=== PATIENT | female | born 1975 | race Caucasian/White ===

== ENCOUNTER 2016-12-11 12:59 | Emergency (ER) | payer SELFPAY ==
[~2016-12-11] VITALS: Ht 162.6 cm; Wt 73.5 kg
[~2016-12-11 12:59] MED LIST: DOCU-144 PO; HYDR-3498 PO; OMEP20CA16 PO; SODI126M NASAL
[2016-12-11 13:01] VITALS: Ht 162.6 cm; Wt 73.5 kg
[2016-12-11] MEDS ORDERED: BENZ11.92 MM (14:25)
--- NOTE | 2016-12-11 14:55 | ERD ---
ER Documentation Chief Complaint Date/Time DATE: 12/11/16 TIME: 14:52 Chief Complaint mouth sores x this AM HPI Patient is a 40-year-old female with no past medical history who presents to the ED with sores on her tongue 1 month. She states that she has a sour taste in her mouth. She denies difficulty breathing or swallowing. Denies vomiting or diarrhea. Denies fever or chills. Denies headache or dizziness. Denies bleeding. Denies abdominal pain. Denies chest pain or cough or shortness of breath. States that she does not have a history of STDs and has been recently tested. No other complaints. ROS All systems reviewed and are negative except as per history of present illness. Medications Home Meds Active Scripts Benzocaine (Orabase) 11.9 Gm Paste..g., 1 APPLIC MM DAILY for 14 Days, EA Prov:DENNY MOMIN PA-C 12/11/16 Sodium Chloride (Saline Nasal Mist) 126 Ml Mist, 2 SPRAY NASAL Q2H Y for NASAL CONGESTION, #1 BOTTLE Prov:BRENT TURK NP 07/05/16 Omeprazole* (Omeprazole*) 20 Mg Capsule.dr, 20 MG PO QAM for 14 Days Prov:BRENT TURK NP 07/05/16 Hydrocodone Bit-Acetaminophen* ([place]*) 5-325 Mg Tab, 1 TAB PO Q4H Y for PAIN LEVEL 6-10 for 30 Days, TAB Prov:DANIELLE ROMO MD 05/27/15 Docusate Sodium* (Colace*) 100 Mg Capsule, 100 MG PO BID for 30 Days, CAP Prov:DANIELLE ROMO MD 05/27/15 Allergies Allergies: Coded Allergies: No Known Allergy (Unverified , 05/26/15) PMhx/Soc History of Surgery: Yes (,Ab Hernia Repair) Anesthesia Reaction: No Hx Neurological Disorder: No Hx Respiratory Disorders: No Hx Cardiac Disorders: No Hx Psychiatric Problems: No Hx Miscellaneous Medical Probl: No Hx Alcohol Use: Yes (Social) Hx Substance Use: No Hx Tobacco Use: Yes (Social 1 cigarette a month) FmHx Family History: No coronary disease, No diabetes, No other Physical Exam Vitals Vital Signs Date Time Temp Pulse Resp B/P Pulse Ox O2 Delivery O2 Flow Rate FiO2 12/11/16 13:01 98.2 86 16 145/73 98 Physical Exam GENERAL: Well-developed, well-nourished female. Appears in no acute distress. HEAD: Normocephalic, atraumatic. EYES: Pupils are equally reactive bilaterally. EOMs grossly intact. No conjunctival erythema. ENT: Moist mucous membranes. No uvula deviation. No kissing tonsils. No exudates. Small skin colored lesions posterior part of the tongue. Nonvesicular. Noninfectious. NECK: Supple. No lymphadenopathy or thyromegaly. No meningismus. negative kernig. negative brudinski. LUNG: Clear to auscultation bilaterally. No rhonchi, wheezing, rales or coarse breath sounds. HEART: Regular rate and rhythm. No murmurs, rubs or gallops. Extremities: Equal pulses bilaterally. No peripheral clubbing, cyanosis or edema. No unilateral leg swelling. NEUROLOGIC: Alert and oriented. Moving all four extremities. 5/5 strength in all extremities. Normal speech. Steady gait. SKIN: Normal color. Warm and dry. No rashes or lesions. Capillary refill < 2 seconds Procedures/MDM ER COURSE: I kept the patient and/or family informed of laboratory and diagnostic imaging results throughout the emergency room course. MEDICAL DECISION MAKING: This is a 40-year-old female who presents with sores on her tongue 1 month. Vital signs were reviewed. Patient is afebrile. Patient is not hypoxic. Patient is not toxic or ill-appearing. Patient's sores on the posterior aspect of her tongue are of unknown etiology. I have low suspicion for infection. Patient does not have dysphagia. Low suspicion for respiratory distress. Low suspicion for sepsis. Low suspicion for peritonsillar abscess. Low suspicion for peritonsillar abscess, strep pharyngitis, mononucleosis, dental abscess DISCHARGE: At this time, patient is stable for discharge and outpatient management with no new complaints during the ER course. Patient was sent home with Orabase and Magic mouthwash and to follow-up with a primary care provider to get a referral to see an ENT specialist. Patient was given a list of clinics in the area.. Patient will be discharged home with instructions to recheck for new or worsening symptoms such as fever, nausea, weakness, LOC and to follow up with primary care in the next 1-2 days. Patient was advised to return to the ER for any new or worsening symptoms. Plan was discussed and patient and/or family understands and agrees. Home instructions were given. Departure Diagnosis: Primary Impression: Tongue sore Condition: Stable Patient Instructions: When Your Child Has Mouth Sores Referrals: COMMUNITY CLINICS YOU HAVE RECEIVED A MEDICAL SCREENING EXAM AND THE RESULTS INDICATE THAT YOU DO NOT HAVE A CONDITION THAT REQUIRES URGENT TREATMENT IN THE EMERGENCY DEPARTMENT. FURTHER EVALUATION AND TREATMENT OF YOUR CONDITION CAN WAIT UNTIL YOU ARE SEEN IN YOUR DOCTORS OFFICE WITHIN THE NEXT 1-2 DAYS. IT IS YOUR RESPONSIBILITY TO MAKE AN APPOINTMENT FOR FOLOW-UP CARE. IF YOU HAVE A PRIMARY DOCTOR --you should call your primary doctor and schedule an appointment IF YOU DO NOT HAVE A PRIMARY DOCTOR YOU CAN CALL OUR PHYSICIAN REFERRAL HOTLINE AT IF YOU CAN NOT AFFORD TO SEE A PHYSICIAN YOU CAN CHOSE FROM THE FOLLOWING [facility] [address] [facility]. [facility] [address] [facility]. [facility] [address] [facility] [address] [facility]. [facility] [address] [facility]. [facility] [address] Additional Instructions: Call your primary care doctor TOMORROW for an appointment during the next 1-2 days.See the doctor sooner or return here if your condition worsens before your appointment time. DENNY MOMIN PA-C Dec 11, 2016 14:55
== END 2016-12-11 14:30 | disposition home or self-care (01) ==
LOC: E/R 12:59
DX: K13.79 Other lesions of oral mucosa (principal); F17.210 Nicotine dependence, cigarettes, uncomplicated
CPT/HCPCS: 99283

== ENCOUNTER 2017-02-09 12:28 | Emergency (ER) | payer MEDICAID ==
[~2017-02-09] VITALS: Ht 160 cm; Wt 73.0 kg
[~2017-02-09 12:28] MED LIST changes: +BENZ11.92 MM
[2017-02-09 12:51] VITALS: Ht 160 cm; Wt 73.0 kg
[2017-02-09] MEDS ORDERED: HYDROCODONE/APAP (5/325) TAB PO ONE (14:00)
[2017-02-09] MEDS ORDERED: DIPHTH/TET/ACEL PERTUSS (ADULT) 0.5 ML VIAL IM* ONE (14:00)
[2017-02-09] MEDS ORDERED: HYDR-906 PO (14:04)
[2017-02-09] MEDS ORDERED: CEPH-443 PO (14:04)
[2017-02-09] MEDS ORDERED: ACET500C5 PO (14:04)
--- NOTE | 2017-02-09 14:13 | ERD ---
ER Documentation Chief Complaint Date/Time DATE: 02/09/17 TIME: 14:08 Chief Complaint S/P FALL LST NIGHT LAC TO LEFT EYEBROW HPI Is a 41-year-old female presents emergency department today for a laceration of her left eye and some headache. Patient states that she was with her friends last night when she slipped and fell in the bathroom of a bar and hit her eye on the wall in front of her. Denies any loss of consciousness, nausea or vomiting. States she has not taken any medication for the pain. States that she had to go to work today and have several meetings and that is why she just come to the emergency room now. ROS All systems reviewed and are negative except as per history of present illness. Medications Home Meds Active Scripts Acetaminophen* (Tylophen*) 500 Mg Capsule, 1 CAP PO Q6H Y for PAIN AND OR ELEVATED TEMP, #30 CAP Prov:KISHAN MORRIS PA-C 02/09/17 Hydrocodone/Acetaminophen (Trimble 5-325 Tablet) 1 Each Tablet, 1 TAB PO Q6H Y for PAIN, #7 TAB Prov:KISHAN MORRIS PA-C 02/09/17 Cephalexin* (Keflex*) 500 Mg Capsule, 500 MG PO QID for 7 Days, CAP Prov:KISHAN MORRIS PA-C 02/09/17 Benzocaine (Orabase) 11.9 Gm Paste..g., 1 APPLIC MM DAILY for 14 Days, EA Prov:DENNY MOMINC 12/11/16 Sodium Chloride (Saline Nasal Mist) 126 Ml Mist, 2 SPRAY NASAL Q2H Y for NASAL CONGESTION, #1 BOTTLE Prov:BRENT TURK NP 07/05/16 Omeprazole* (Omeprazole*) 20 Mg Capsule.dr, 20 MG PO QAM for 14 Days Prov:BRENT TURK NP 07/05/16 Hydrocodone Bit-Acetaminophen* (Trimble*) 5-325 Mg Tab, 1 TAB PO Q4H Y for PAIN LEVEL 6-10 for 30 Days, TAB Prov:DANIELLE ROMO MD 05/27/15 Docusate Sodium* (Colace*) 100 Mg Capsule, 100 MG PO BID for 30 Days, CAP Prov:DANIELLE ROMO MD 05/27/15 Allergies Allergies: Coded Allergies: No Known Allergy (Unverified , 02/09/17) PMhx/Soc History of Surgery: Yes (,Ab Hernia Repair) Anesthesia Reaction: No Hx Neurological Disorder: No Hx Respiratory Disorders: No Hx Cardiac Disorders: No Hx Psychiatric Problems: No Hx Miscellaneous Medical Probl: No Hx Alcohol Use: Yes (Social) Hx Substance Use: No Hx Tobacco Use: Yes (Social 1 cigarette a month) Smoking Status: Current some day smoker Physical Exam Vitals Vital Signs Date Time Temp Pulse Resp B/P Pulse Ox O2 Delivery O2 Flow Rate FiO2 02/09/17 12:51 98.9 84 19 132/61 100 Physical Exam Const: Talkative, no acute distress Head: Left eye with mild swelling superior orbit with mild tenderness palpation. Nontender inferior orbit. Eyes: Normal Conjunctiva. PERRLA. EOM intact. No pain with eye movement. ENT: Normal External Ears, Nose and Mouth. No hemotympanum. No epistaxis. Neck: Full range of motion..~ No meningismus. Resp: Clear to auscultation bilaterally Cardio: Regular rate and rhythm, no murmurs Abd: Soft, non tender, non distended. Normal bowel sounds Skin: 1 cm laceration left eyelid with hemostasis. Back: No midline or flank tenderness Ext: No cyanosis, or edema Neur: Awake and alert. He understood through 12 intact. No gait ataxia peer Psych: Normal Mood and Affect Results 24 hrs Current Medications Medications (Trade) Dose Ordered Sig/Cipriano Route PRN Reason Start Time Stop Time Status Last Admin Dose Admin Acetaminophen/ Hydrocodone Bitart (Trimble (5/325)) 1 tab ONCE ONCE PO 02/09/17 14:00 02/09/17 14:01 DC 02/09/17 13:49 Diphtheria/ Tetanus/Acell Pertussis (Adacel) 0.5 ml ONCE ONCE IM* 02/09/17 14:00 02/09/17 14:01 DC 02/09/17 13:50 Procedures/MDM This 41-year-old female presents emergency department today for a laceration above her left eye and a headache. Patient slipped and fell on the girls bathroom at a bar last night. She denies any loss of consciousness or nausea vomiting. She had not taken any medication for the pain. Patient did have some mild amount of swelling above her left orbit with mild tenderness. She is afebrile and otherwise well-appearing. She is no focal neurologic deficits and no gait ataxia given that there is no loss of consciousness or nausea vomiting do not feel the patient requires a head CT scan at this time. Low suspicion for orbital fractures patient only has mild tenderness palpation. Her EOMs intact. There is no pain with eye movement or tracking I have low suspicion for nerve entrapment. I did give the patient return precautions for any change in behavior, increasing pain, nausea or vomiting. Patient understood. Patient's laceration occurred greater than 12 hours ago however it appears superficial at this time there is good hemostasis. Wound appears to be superficial and it may heal by secondary intention at this time. The wound was cleaned here in the emergency department and I did apply Steri-Strips. Patient given a prescription for Keflex. Her tetanus was updated here in the emergency department she is also given Trimble here in the emergency department. She will be given a very short course for home as well as Tylenol. Patient is sitting up in the exam room on her phone is in no acute distress. She was instructed to follow-up in 48 hours for a wound check. At this time the patient is stable for discharge and outpatient management. Patient should follow up with their PCP in the next 1-2 days. They may return to the emergency department sooner for any persistent or worsening of symptoms. Patient understood and agreed with the plan. Departure Diagnosis: Primary Impression: Laceration Additional Impression: Headache Headache type: unspecified Headache chronicity pattern: episodic headache Intractability: not intractable Qualified Code: R51 - Nonintractable episodic headache, unspecified headache type Condition: Fair Patient Instructions: Self-Care for Headaches, Laceration, Face (Suture Or Tape ) Referrals: [facility] YOU HAVE RECEIVED A MEDICAL SCREENING EXAM AND THE RESULTS INDICATE THAT YOU DO NOT HAVE A CONDITION THAT REQUIRES URGENT TREATMENT IN THE EMERGENCY DEPARTMENT. FURTHER EVALUATION AND TREATMENT OF YOUR CONDITION CAN WAIT UNTIL YOU ARE SEEN IN YOUR DOCTORS OFFICE WITHIN THE NEXT 1-2 DAYS. IT IS YOUR RESPONSIBILITY TO MAKE AN APPOINTMENT FOR FOLOW-UP CARE. IF YOU HAVE A PRIMARY DOCTOR --you should call your primary doctor and schedule an appointment IF YOU DO NOT HAVE A PRIMARY DOCTOR YOU CAN CALL OUR PHYSICIAN REFERRAL HOTLINE AT IF YOU CAN NOT AFFORD TO SEE A PHYSICIAN YOU CAN CHOSE FROM THE FOLLOWING [facility] [address] [facility] [address] [facility] [address] [facility] [address] [facility] [facility] [address] [facility]. [facility] [address] Additional Instructions: Call your primary care doctor TOMORROW for an appointment during the next 1-2 days.See the doctor sooner or return here if your condition worsens before your appointment time. Wound check in 48 hours Take Trimble for severe pain otherwise take Tylenol Keep wound clean and dry Take antibiotics as prescribed KISHAN MORRIS PA-C Feb 09, 2017 14:13
== END 2017-02-09 14:23 | disposition home or self-care (01) ==
LOC: FTE 12:28
DX: S01.112A Laceration without foreign body of left eyelid and periocular area, initial encounter (principal); S09.90XA Unspecified injury of head, initial encounter; F17.210 Nicotine dependence, cigarettes, uncomplicated; W01.198A Fall on same level from slipping, tripping and stumbling with subsequent striking against other object, initial encounter; Y92.002 Bathroom of unspecified non-institutional (private) residence as the place of occurrence of the external cause
CPT/HCPCS: 90471; 90715; Z7502; Z7610

== ENCOUNTER 2017-02-12 10:13 | Emergency (ER) | payer MEDICAID ==
[~2017-02-12] VITALS: Ht 167.6 cm; Wt 74.5 kg
[~2017-02-12 10:13] MED LIST changes: +ACET500C5 PO; +CEPH-443 PO; +HYDR-906 PO
[2017-02-12 10:15] VITALS: Ht 167.6 cm; Wt 74.5 kg
[2017-02-12] MEDS ORDERED: NEOM1PAC TP (10:37)
--- NOTE | 2017-02-12 10:53 | ERD ---
ER Documentation Chief Complaint Date/Time DATE: 02/12/17 TIME: 10:52 Chief Complaint Suture removal HPI This 41-year-old female presents the emergency department today for wound check of a laceration that she sustained a few days ago. I did see this patient on ROS All systems reviewed and are negative except as per history of present illness. Medications Home Meds Active Scripts Neomycin Scott/Bacitrac Zn/Poly (Triple Antibiotic Ointment) 1 Each Oint.pack, 1 EACH TP BID, #7 Prov:KISHAN MORRIS PA-C 02/12/17 Acetaminophen* (Tylophen*) 500 Mg Capsule, 1 CAP PO Q6H Y for PAIN AND OR ELEVATED TEMP, #30 CAP Prov:KISHAN MORRIS PA-C 02/09/17 Hydrocodone/Acetaminophen ([place]cad[place] 5-325 Tablet) 1 Each Tablet, 1 TAB PO Q6H Y for PAIN, #7 TAB Prov:KISHAN MORRIS PA-C 02/09/17 Cephalexin* (Keflex*) 500 Mg Capsule, 500 MG PO QID for 7 Days, CAP Prov:KISHAN MORRIS PA-C 02/09/17 Benzocaine (Orabase) 11.9 Gm Paste..g., 1 APPLIC MM DAILY for 14 Days, EA Prov:DENNY MOMIN PA-C 12/11/16 Sodium Chloride (Saline Nasal Mist) 126 Ml Mist, 2 SPRAY NASAL Q2H Y for NASAL CONGESTION, #1 BOTTLE Prov:BRENT TURK NP 07/05/16 Omeprazole* (Omeprazole*) 20 Mg Capsule.dr, 20 MG PO QAM for 14 Days Prov:BRENT TURK NP 07/05/16 Hydrocodone Bit-Acetaminophen* ([place]cad[place]*) 5-325 Mg Tab, 1 TAB PO Q4H Y for PAIN LEVEL 6-10 for 30 Days, TAB Prov:DANIELLE ROMO MD 05/27/15 Docusate Sodium* (Colace*) 100 Mg Capsule, 100 MG PO BID for 30 Days, CAP Prov:DANIELLE ROMO MD 05/27/15 Allergies Allergies: Coded Allergies: No Known Allergy (Unverified , 02/09/17) PMhx/Soc History of Surgery: Yes (,Ab Hernia Repair) Anesthesia Reaction: No Hx Neurological Disorder: No Hx Respiratory Disorders: No Hx Cardiac Disorders: No Hx Psychiatric Problems: No Hx Miscellaneous Medical Probl: No Hx Alcohol Use: Yes (Socially) Hx Substance Use: No Hx Tobacco Use: Yes (occasionally) Smoking Status: Never smoker Physical Exam Vitals Vital Signs Date Time Temp Pulse Resp B/P Pulse Ox O2 Delivery O2 Flow Rate FiO2 02/12/17 10:15 98.0 72 20 111/70 100 Physical Exam Const: No acute distress Head: Atraumatic Eyes: Normal Conjunctiva. PERRLA. EOM intact. Mild bruising over the outer part of the eye with evidence of healing laceration. ENT: Normal External Ears, Nose and Mouth. Neck: Full range of motion..~ No meningismus. Resp: Clear to auscultation bilaterally Cardio: Regular rate and rhythm, no murmurs Skin: No petechiae or rashes Back: No midline or flank tenderness Ext: No cyanosis, or edema Neur: Awake and alert Psych: Normal Mood and Affect Procedures/MDM This 41-year-old female who presents to the emergency department today for wound check of a laceration she sustained 4 days ago. Patient was here in the emergency department 3 days ago and I did see and evaluate this patient and the decision was made to use Steri-Strips to close the wound at that time as it appeared to be superficial and furthermore patient had had the laceration the night before had been greater than 2 1 hours prior to patient's presentation here in the emergency department. Patient reported that her headache has improved and she even went hiking yesterday. Denies any fevers or chills. States she is taking her antibiotics as prescribed. Wound appears to be healing well and is well approximated. I did reapply Steri-Strips and notify the patient when he fell off she did not need to reapply them. She was also given triple antibiotic ointment to apply after the Steri-Strips have come off. Low suspicion for sepsis, cellulitis or deep space infection. At this time the patient is stable for discharge and outpatient management. Patient should follow up with their PCP in the next 1-2 days. They may return to the emergency department sooner for any persistent or worsening of symptoms. Patient understood and agreed with the plan. Departure Diagnosis: Primary Impression: Visit for wound check Condition: Fair Patient Instructions: Wound Check, Lac F/U (No Infection) Referrals: [facility] YOU HAVE RECEIVED A MEDICAL SCREENING EXAM AND THE RESULTS INDICATE THAT YOU DO NOT HAVE A CONDITION THAT REQUIRES URGENT TREATMENT IN THE EMERGENCY DEPARTMENT. FURTHER EVALUATION AND TREATMENT OF YOUR CONDITION CAN WAIT UNTIL YOU ARE SEEN IN YOUR DOCTORS OFFICE WITHIN THE NEXT 1-2 DAYS. IT IS YOUR RESPONSIBILITY TO MAKE AN APPOINTMENT FOR FOLOW-UP CARE. IF YOU HAVE A PRIMARY DOCTOR --you should call your primary doctor and schedule an appointment IF YOU DO NOT HAVE A PRIMARY DOCTOR YOU CAN CALL OUR PHYSICIAN REFERRAL HOTLINE AT IF YOU CAN NOT AFFORD TO SEE A PHYSICIAN YOU CAN CHOSE FROM THE FOLLOWING [facility] [address] [facility]. [facility] [address] [facility]. [facility] [address] [facility] [address] [facility] [address] [facility]. [facility]. [address] Additional Instructions: Call your primary care doctor TOMORROW for an appointment during the next 1-2 days.See the doctor sooner or return here if your condition worsens before your appointment time. Keep wound clean and dry for another couple of days Keep Steri-Strips until they fall off May use triple antibiotic ointment KISHAN MORRIS PA-C Feb 12, 2017 10:53
== END 2017-02-12 11:13 | disposition home or self-care (01) ==
LOC: FTE 10:13
DX: Z48.01 Encounter for change or removal of surgical wound dressing (principal)
CPT/HCPCS: 99283

== ENCOUNTER 2019-01-19 13:29 | Inpatient (IN) | payer MEDICAID ==
[~2019-01-19] VITALS: Ht 167.6 cm; Wt 74.5 kg
[~2019-01-19 13:29] MED LIST changes: +HYDR-4011 PO; -HYDR-906 PO; +NEOM1PAC TP
--- NOTE | 2019-01-19 13:40 | ERD ---
ER Documentation Chief Complaint Chief Complaint Abdominal Pain HPI 43-year-old female with no significant prior medical history presents the ED complaining of a 2-day history of worsening, now severe, sharp and achy, right upper quadrant pain which radiates to the back. Symptoms recorded by nausea but no vomiting, diarrhea or constipation. Patient was in [place] when the symptoms began was seen yesterday at a hospital there were ultrasound revealed cholelithiasis. Symptoms improved with intravenous analgesics but admission was advised however patient decided to return home and be seen in the hospital close to her home in [place]. Patient [place] straight from the airport. No dysuria, polyuria, hematuria or flank pain. Denies chest pain, palpitations or shortness of breath. No fevers or chills. ROS All systems reviewed and are negative except as per history of present illness. Medications Home Meds Active Scripts Tramadol HCl (Tramadol HCl) 50 Mg Tablet, 50 MG PO Q6H PRN for PAIN, #20 TAB Prov:ARAVIND SCHAEFER 01/22/19 Discontinued Scripts Neomycin Scott/Bacitrac Zn/Poly (Triple Antibiotic Ointment) 1 Each Oint.pack, 1 EACH TP BID, #7 Prov:KISHAN MORRIS PA-C 02/12/17 Acetaminophen* (Tylophen*) 500 Mg Capsule, 1 CAP PO Q6H PRN for PAIN AND OR ELEVATED TEMP, #30 CAP Prov:KISHAN OMRRISC 02/09/17 Hydrocodone/Acetaminophen ([place] 5-325 Tablet) 1 Each Tablet, 1 TAB PO Q6H PRN for PAIN, #7 TAB Prov:KISHAN MORRIS PA-C 02/09/17 Cephalexin* (Keflex*) 500 Mg Capsule, 500 MG PO QID for 7 Days, CAP Prov:KISHAN MORRISC 02/09/17 Benzocaine (Orabase) 11.9 Gm Paste..g., 1 APPLIC MM DAILY for 14 Days, EA Prov:DENNY MOMIN PA-C 12/11/16 Sodium Chloride (Saline Nasal Mist) 126 Ml Mist, 2 SPRAY NASAL Q2H PRN for NASAL CONGESTION, #1 BOTTLE Prov:BRENT TURK NP 07/05/16 Omeprazole* (Omeprazole*) 20 Mg Capsule.dr, 20 MG PO QAM for 14 Days Prov:BRENT TURK CHERRY GROWER 07/05/16 Hydrocodone Bit-Acetaminophen* ([place]*) 5-325 Mg Tab, 1 TAB PO Q4H PRN for PAIN LEVEL 6-10 for 30 Days, TAB Prov:DANIELLE ROMO MD 05/27/15 Docusate Sodium* (Colace*) 100 Mg Capsule, 100 MG PO BID for 30 Days, CAP Prov:DANIELLE ROMO MD 05/27/15 Allergies Allergies: Coded Allergies: No Known Allergy (Unverified , 01/19/19) PMhx/Soc Reviewed in chart. As per HPI. History of Surgery: Yes (,Ab Hernia Repair) Anesthesia Reaction: No Hx Neurological Disorder: No Hx Respiratory Disorders: No Hx Cardiac Disorders: No Hx Psychiatric Problems: No Hx Miscellaneous Medical Probl: No Hx Alcohol Use: Yes (Socially) Hx Substance Use: No Hx Tobacco Use: Yes (occasionally) FmHx No family history relevant to presenting complaint Physical Exam Vitals Vital Signs Date Temp Pulse Resp B/P (MAP) Pulse Ox O2 O2 Flow FiO2 Time Delivery Rate 01/19/19 52 16 121/67 99 Room Air 17:54 (85) 01/19/19 56 15 119/76 100 Room Air 15:17 (90) 01/19/19 98.4 58 26 122/60 99 13:31 (80) Physical Exam Const: Alert, moderate to severe distress due to pain Head: Atraumatic Eyes: Normal Conjunctiva. Anicteric ENT: Normal External Ears, Nose and Mouth. Neck: Full range of motion. Nontender. Resp: Breath sounds are equal and clear to auscultation bilaterally Cardio: Regular rate and rhythm, no murmurs Abd: Soft, severe right upper quadrant tenderness greater than right lower quadrant tenderness with positive Beltrán sign. No rebound or guarding. No left lower quadrant tenderness. Skin: No petechiae or rashes Back: No midline or CVA tenderness. Ext: No cyanosis, or edema Neur: Awake and alert. Normal speech. No focal deficit observed. Psych: Normal Mood and Affect. Patient does not appear anxious or depressed. Result Diagram: 01/22/19 1254 01/22/19 0436 Results 24 hrs Laboratory Tests Test 01/19/19 13:52 01/19/19 13:58 White Blood Count 6.2 10^3/ul Red Blood Count 3.83 10^6/ul Hemoglobin 11.3 g/dl Hematocrit 34.8 % Mean Corpuscular Volume 90.9 fl Mean Corpuscular Hemoglobin 29.5 pg Mean Corpuscular Hemoglobin Concent 32.5 g/dl Red Cell Distribution Width 13.8 % Platelet Count 227 10^3/UL Mean Platelet Volume 10.7 fl Immature Granulocytes % 0.200 % Neutrophils % 73.0 % Lymphocytes % 16.5 % Monocytes % 9.4 % Eosinophils % 0.6 % Basophils % 0.3 % Nucleated Red Blood Cells % 0.0 /100WBC Immature Granulocytes # 0.010 10^3/ul Neutrophils # 4.5 10^3/ul Lymphocytes # 1.0 10^3/ul Monocytes # 0.6 10^3/ul Eosinophils # 0.0 10^3/ul Basophils # 0.0 10^3/ul Nucleated Red Blood Cells # 0.0 10^3/ul Urine Color YELLOW Urine Clarity SLIGHTLY CLOUDY Urine pH 5.0 Urine Specific [place] 1.019 Urine Ketones 1+ mg/dL Urine Nitrite NEGATIVE mg/dL Urine Bilirubin NEGATIVE mg/dL Urine Urobilinogen NEGATIVE mg/dL Urine Leukocyte Esterase NEGATIVE Tamiko/ul Urine Microscopic RBC 1 /HPF Urine Microscopic WBC 1 /HPF Urine Squamous Epithelial Cells MODERATE /HPF Urine Mucus MODERATE /HPF Urine Hemoglobin NEGATIVE mg/dL Urine Glucose NEGATIVE mg/dL Urine Total Protein NEGATIVE mg/dl Sodium Level 141 mmol/L Potassium Level 3.8 mmol/L Chloride Level 105 mmol/L Carbon Dioxide Level 26 mmol/L Anion Gap 10 Blood Urea Nitrogen 12 mg/dl Creatinine 0.58 mg/dl Est Glomerular Filtrat Rate mL/min > 60 mL/min Glucose Level 130 mg/dl Calcium Level 9.5 mg/dl Total Bilirubin 0.7 mg/dl Direct Bilirubin 0.00 mg/dl Indirect Bilirubin 0.7 mg/dl Aspartate Amino Transf (AST/SGOT) 205 IU/L Alanine Aminotransferase (ALT/SGPT) 223 IU/L Alkaline Phosphatase 144 IU/L Total Protein 7.7 g/dl Albumin 4.3 g/dl Globulin 3.40 g/dl Albumin/Globulin Ratio 1.26 Lipase 76 U/L POC Beta HCG, Qualitative NEGATIVE Current Medications Medications Dose Sig/Cipriano Start Time Status Last (Trade) Ordered Route PRN Stop Time Admin Dose Reason Admin Sodium 1,000 ml @ Q1H STAT 01/19/19 DC 01/19/19 Chloride 1,000 mls/hr IV 13:47 13:54 01/19/19 14:46 1 mg ONCE STAT 01/19/19 DC 01/19/19 Hydromorphone IV 13:47 13:54 HCl 01/19/19 13:50 (Dilaudid) Ondansetron 4 mg ONCE STAT 01/19/19 DC 01/19/19 HCl (Zofran IV 13:47 13:54 Inj) 01/19/19 13:50 1 mg ONCE STAT 01/19/19 DC 01/19/19 Hydromorphone IV 15:54 16:06 HCl 01/19/19 15:55 (Dilaudid) IV Flush 10 ml STK-MED 01/19/19 DC (NS 10 ml) ONCE .ROUTE 15:59 01/19/19 16:00 Sodium 100 ml @ ud STK-MED 01/19/19 DC Chloride ONCE .ROUTE 15:59 01/19/19 16:00 Iohexol 0 ml @ ud STK-MED 01/19/19 DC ONCE .ROUTE 15:59 01/19/19 16:00 IV Flush 10 ml STK-MED 01/19/19 DC (NS 10 ml) ONCE .ROUTE 15:59 01/19/19 16:00 Sodium 100 ml @ ud STK-MED 01/19/19 DC Chloride ONCE .ROUTE 15:59 01/19/19 16:00 Iohexol 100 ml @ ud STK-MED 01/19/19 DC ONCE .ROUTE 15:59 01/19/19 16:00 Ketorolac 15 mg ONCE STAT 01/19/19 DC 01/19/19 Tromethamine IV 17:49 17:52 (Toradol) 01/19/19 17:50 1,000 ml @ Q10H IV 01/19/19 DC 01/20/19 Dextrose/Sodi 100 mls/hr 17:55 09:55 um Chloride 01/21/19 11:51 IV Flush 3 ml PER 01/19/19 DC (NS 3 ml) PROTOCOL IV 18:00 01/22/19 16:28 Ondansetron 4 mg Q6H PRN 01/19/19 DC 01/20/19 HCl (Zofran IV 18:00 20:11 Inj) NAUSEA/VOMITI 01/22/19 16:28 NG 650 mg Q6H PRN 01/19/19 DC 01/19/19 Acetaminophen PO .PAIN 1-3 18:00 21:19 (Tylenol OR TEMP 01/22/19 16:28 Tab) 1 tab Q6H PRN 01/19/19 DC 01/21/19 Acetaminophen PO .MOD PAIN 18:00 06:55 / 4-6 01/22/19 12:59 Hydrocodone Bitart ([place] (5/325)) 2 tab Q6H PRN 01/19/19 DC 01/22/19 Acetaminophen PO .SEVERE 18:00 07:05 / PAIN 7-10 01/22/19 12:59 Hydrocodone Bitart ([place] (5/325)) Morphine 2 mg Q4H PRN 01/19/19 DC 01/20/19 Sulfate IV .SEVERE 18:00 05:40 (morphine) PAIN 7-01/20/19 10:57 Docusate 100 mg Q12H PRN 01/19/19 DC Sodium PO 18:00 (Colace) .CONSTIPATION 01/22/19 16:28 Magnesium 30 ml DAILY PRN 01/19/19 DC Hydroxide PO 18:00 (Milk Of Mag) .CONSTIPATION 01/22/19 16:28 Piperacillin 100 ml @ Q8H IVPB 01/19/19 DC 01/20/19 Sod/ 200 mls/hr 18:01 09:50 Tazobactam 01/20/19 10:56 Sod Procedures/MDM DOCUMENTS REVIEWED: ED nurse, prior ED IMAGING: PROCEDURE: Right upper quadrant ultrasound CLINICAL INDICATION: Abdominal pain TECHNIQUE: Multiple real-time images were acquired of the patient's abdomen and right retroperitoneum utilizing a high resolution transducer. COMPARISON: None FINDINGS: The liver is normal in echogenicity and measures 17.7 cm. No focal hepatic mass es are seen. The gallbladder is physiologically distended. There is no evidence of gallstones, gallbladder wall thickening, or pericholecystic fluid. The intra and extrahepatic bile ducts are normal in caliber. The common bile duct measures 4.1 mm. Midline images demonstrate the pancreas to be normal in echogenicity without obvious inflammatory change. Pancreatic tail is suboptimally seen Survey views of the right kidney demonstrate no evidence of hydronephrosis or renal calculi. The right kidney measures 11.2 cm. IMPRESSION: Unremarkable right upper quadrant ultrasound. No evidence of cholelithiasis or acute cholecystitis.. RPTAT: HH .Aaron Arteaga MD, MD Date Time Electronically viewed and signed by .Aaron Arteaga MD, MD on 01/19/2019 14:44 .W/ AMENDMENT: 01/19/2019 4:49:49 PM Archie Muhammad M.d Differential considerations for the hepatic dome lesion also include benign focal nodular hyperplasia. PROCEDURE: CT Abdomen and Pelvis with contrast. CLINICAL INDICATION: Right-sided abdominal pain TECHNIQUE: CT scan of the abdomen and pelvis with contrast was performed on a multi-detector high-resolution CT scanner. The patient was scanned following the uncomplicated intravenous administration of 100 cc of Omnipaque 300. Coronal and sagittal reformatted images were obtained from the axial source dahlia ges. Images were reviewed on a high-resolution PACS workstation. The total exam CTDI equals 15.99 mGy and the total exam DLP equals 958 mGy-cm. DICOM images are available. One or more of the following dose reduction techniques were utilized: 1.) Automated exposure control 2.) Adjustment of the mA +/- kV according to patient's size 3.) Use of iterative reconstruction technique. COMPARISON: May 26, 2015 FINDINGS: Limited evaluation of the lung bases are clear. No pleural effusion. A centrally hypodense lesion in the hepatic dome with surrounding hypervascularity measuring approximately 3.0 cm may reflect a benign hemangioma though it is incompletely characterized on this study (series 3, image 16). In retrospect, it was likely present in May 2015 although the prior exa mination is limited without the administration of intravenous contrast. There is mild intra and extrahepatic biliary dilatation with distension of the gallbladder as well as diffuse gallbladder wall thickening. Findings are suggestive of acute cholecystitis. The spleen, bilateral adrenal glands, and pancreas are normal-appearing. The bilateral kidneys are normal-appearing aside from a punctate left lower pole renal calculus which was also present in 2015 and is nonobstructing. The small and large bowel are thin-walled and nondilated without evidence for obstruction. Normal appendix. The uterus is heterogeneous likely due to the presence of several small uterine fibroids. Right corpus luteal cyst is present. Urinary bladder is decompressed. No suspicious osseous lesions. IMPRESSION: 1. Gallbladder distension with diffuse gallbladder wall thickening highly suggestive of acute cholecystitis. Mild intra and extrahepatic biliary dilatation. 2. Incidentally noted is a 3 cm centrally hypodense hepatic lesion at the liver dome measuring up to 3 cm. Imaging findings are most characteristic of a hemangioma although this lesion can be further characterized on a non emergent hepatic protocol CT or MRI. This lesion was likely present on a scan dating back to May 2015 without significant change in size, therefore suggesting benignity. 3. Heterogeneous uterine myometrium suggesting the presence of underlying uterine leiomyomas. This can be further characterized by pelvic ultrasound as clinically indicated. Physician Armin Date Time Electronically viewed and signed by Physician Armin on 01/19/2019 16:50 ML/ REEXAMINATION/REEVALUATION: Time: 14:50. Pain decreased to a 4/10. Still with right upper quadrant greater than right lower quadrant tenderness. Ultrasound negative for cholelithiasis or cholecystitis. CT ordered. MEDICAL DECISION MAKIN-year-old female with no significant prior medical history presents the ED for evaluation of a 2-day history of worsening right upper quadrant pain. CBC reveals mild anemia but no leukocytosis or thrombocytopenia. Chemistry to evaluate for electrolyte abnormalities, hyperglycemia or renal insufficiency is unremarkable. LFTs significant for transaminitis but no hyperbilirubinemia. Lipase is not elevated or consistent with pancreatitis. Ultrasound of the right upper quadrant to evaluate for cholelithiasis/cholecystitis was unremarkable. As patient continued to have pain and right upper quadrant tenderness a CT of the abdomen pelvis was obtained and revealed findings consistent with acute cholecystitis as well as uterine leiomyoma and a liver lesion possibly hemangioma but will require further work- up. Surgery and GI were consulted. Patient required multiple doses of intravenous analgesics including Dilaudid and ketorolac for pain control. Admit to med/surg for further evaluation and management. CALLS/CONSULTS: Time: 16:55, Dr. Segundo. CALLS/CONSULTS: Time: 16:57, Dr. Suárez. PATIENT CARE TRANSITIONED: Time: 17:25, Dr. Negro. Counseled patient regarding diagnosis, diagnostic results and plan for admission. Departure Diagnosis: Primary Impression: Acute cholecystitis Additional Impressions: Uterine leiomyoma Uterine leiomyoma location: unspecified location Qualified Codes: D25.9 - Leiomyoma of uterus, unspecified Hepatic lesion Condition: Serious JAM WIN MD Jan 19, 2019 13:40
[2019-01-19] MEDS ORDERED: ONDANSETRON 4 MG INJ IV STA (13:47)
[2019-01-19] MEDS ORDERED: HYDROmorphONE 1 MG/ML SYG IV STA (13:47)
[2019-01-19] MEDS ORDERED: SOD CHLORIDE 0.9% 1,000 ML IV STA (13:47)
[2019-01-19] MEDS ORDERED: HYDROmorphONE 2 MG/ML SYG IV STA (15:54)
[2019-01-19] MEDS ORDERED: IOHEXOL 0 ML ONE (15:59)
[2019-01-19] MEDS ORDERED: IOHEXOL 100 ML ONE (15:59)
[2019-01-19] MEDS ORDERED: SOD CHLORIDE 0.9% 100 ML ONE ×2 (15:59)
[2019-01-19] MEDS ORDERED: KETOROLAC 15 MG INJ IV STA ×2 (17:49→21:08)
[2019-01-19] MEDS ORDERED: DOCUSATE SODIUM 100 MG CAP PO PRN (18:00)
[2019-01-19] MEDS ORDERED: ACETAMINOPHEN 325 MG TAB PO PRN ×2 (18:00→18:30)
[2019-01-19] MEDS ORDERED: HYDROCODONE/APAP (5/325) TAB PO PRN (18:00)
[2019-01-19] MEDS ORDERED: NACL 0.9% 3 ML SYG IV SCH (18:00)
[2019-01-19] MEDS ORDERED: MAGNESIUM HYDROXIDE 30ML CUP PO PRN (18:00)
--- NOTE | 2019-01-19 18:02 | HP ---
Date/Time of Note Date/Time of Note DATE: 01/19/19 TIME: 18:02 Assessment/Plan VTE Prophylaxis SCD applied (from Nsg): Yes Pharmacological prophylaxis: NA/contraindicated Pharm contraindication: low risk/ambulating Lines/Catheters IV Catheter Type (from Nrsg): Peripheral IV Assessment/Plan Assessment/Plan 1. Acute RUQ pain - US negative for acute issues but CT A/P suspicious for acute cholecystitis - General surgery consulted and requesting HIDA scan for further evaluation - will keep NPO after midnight and okay for clears for now - IVF and pain control 2. Mild intrahepatic/extrahepatic biliary dilation - GI consulted by ED. On US shows CBD only 4mm 3. 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 Transaminitis - secondary to #1 5. Diet - clears for now then NPO 6. Disposition - Admit to med/surg for evaluation of RUQ for acute cholecystitis Result Diagram: 01/19/19 1352 01/19/19 1352 Results 24hrs Laboratory Tests Test 01/19/19 13:52 01/19/19 13:58 White Blood Count 6.2 # Red Blood Count 3.83 L Hemoglobin 11.3 L Hematocrit 34.8 L Mean Corpuscular Volume 90.9 Mean Corpuscular Hemoglobin 29.5 Mean Corpuscular Hemoglobin Concent 32.5 Red Cell Distribution Width 13.8 Platelet Count 227 Mean Platelet Volume 10.7 H Immature Granulocytes % 0.200 Neutrophils % 73.0 Lymphocytes % 16.5 Monocytes % 9.4 Eosinophils % 0.6 Basophils % 0.3 Nucleated Red Blood Cells % 0.0 Immature Granulocytes # 0.010 Neutrophils # 4.5 Lymphocytes # 1.0 Monocytes # 0.6 Eosinophils # 0.0 Basophils # 0.0 Nucleated Red Blood Cells # 0.0 Urine Color YELLOW Urine Clarity SLIGHTLY CLOUDY A Urine pH 5.0 Urine Specific [place] 1.019 Urine Ketones 1+ H Urine Nitrite NEGATIVE Urine Bilirubin NEGATIVE Urine Urobilinogen NEGATIVE Urine Leukocyte Esterase NEGATIVE Urine Microscopic RBC 1 Urine Microscopic WBC 1 Urine Squamous Epithelial Cells MODERATE Urine Mucus MODERATE Urine Hemoglobin NEGATIVE Urine Glucose NEGATIVE Urine Total Protein NEGATIVE Sodium Level 141 Potassium Level 3.8 Chloride Level 105 Carbon Dioxide Level 26 Anion Gap 10 Blood Urea Nitrogen 12 Creatinine 0.58 Est Glomerular Filtrat Rate mL/min > 60 Glucose Level 130 Calcium Level 9.5 Total Bilirubin 0.7 Direct Bilirubin 0.00 Indirect Bilirubin 0.7 Aspartate Amino Transf (AST/SGOT) 205 H Alanine Aminotransferase (ALT/SGPT) 223 H Alkaline Phosphatase 144 H Total Protein 7.7 Albumin 4.3 Globulin 3.40 H Albumin/Globulin Ratio 1.26 Lipase 76 POC Beta HCG, Qualitative NEGATIVE HPI/ROS Admit Date/Time Admit Date/Time 01/19/19 Hx of Present Illness 43 yo F with no significant PMH presented to ED with worsening RUQ pain that is radiating to back. Patient states she was experiencing right upper quadrant discomfort for the past 1.5 months. She was recently in [facility] and about 2 days ago was experiencing severe right upper quadrant pain with bloating and associated nausea. She admits to poor appetite since felt full soon after eat ing. She denies any fevers, chills, vomiting, dizziness, chest pain or shortness of breath. No constipation or diarrhea. Admits to recent UTI prior to vacation to [facility]. ROS All 12 systems reviewed and pertinent positives as per HPI. All others negative. Constitutional: febrile, nausea Eyes: No discharge ENT: No congestion Respiratory: No cough, No shortness of breath, No sputum, No wheezing Cardiovascular: No chest pain, No lightheadedness, No palpitations Gastrointestinal: pain, decreased appetite, nausea, other (bloating); No constipation, No diarrhea, No vomiting Genitourinary: no complaints Musculoskeletal: back pain Skin: No laceration, No rash Neurologic: No confusion, No dizziness, No focal-weakness, No syncope Endocrine: no complaints Lymphatic: no complaints Psychological: nl mood/affect Immunologic: no complaints PMH/Family/Social Past Medical History Medical History: urinary tract infection Coded Allergies: No Known Allergy (Unverified , 01/19/19) Past Surgical History Past Surgical Hx: other (hernia repair, cesarian section) Family History Significant Family History: other Social History Alcohol Use: rarely Smoking Status: Never smoker Drug Use: none Exam/Review of Systems Vital Signs Vitals Vital Signs Date Temp Pulse Resp B/P (MAP) Pulse Ox O2 O2 Flow FiO2 Time Delivery Rate 01/19/19 52 16 121/67 99 Room Air 17:54 (85) 01/19/19 98.4 13:31 Exam Exam General: Patient is sitting on side of bed, distress secondary to severe pain. answering questions appropriately HEENT: Atraumatic, normocephalic. The pupils are equal, round and reactive. Extraocular motor are intact, poor dentition Neck: Supple with full range of motion. No rigidity or meningismus Chest: Nontender Lungs: Clear to auscultation bilaterally no crackles rales or wheezing Heart: Normal S1-S2, Regular rhythm and rate. No murmur, S3, or S4 Abdomen: Soft , tender RUQ, protuberant, bowel sounds are present. No guarding no rebound tenderness , No masses or organomegaly. No costovertebral temporal angle mass Extremities: Normal to inspection, no edema no cyanosis Neurologic: Alert and awake, speech normal, cranial nerves II through XII are intact, motor and sensory are intact, Additional Comments AMENDMENT: 01/19/2019 4:49:49 PM Archie Muhammad M.d Differential considerations for the hepatic dome lesion also include benign focal nodular hyperplasia. PROCEDURE: CT Abdomen and Pelvis with contrast. CLINICAL INDICATION: Right-sided abdominal pain TECHNIQUE: CT scan of the abdomen and pelvis with contrast was performed on a multi-detector high-resolution CT scanner. The patient was scanned following the uncomplicated intravenous administration of 100 cc of Omnipaque 300. Coronal and sagittal reformatted images were obtained from the axial source images. Images were reviewed on a high-resolution PACS workstation. The total exam CTDI equals 15.99 mGy and the total exam DLP equals 958 mGy-cm. DICOM images are available. One or more of the following dose reduction techniques were utilized: 1.) Automated exposure control 2.) Adjustment of the mA +/- kV according to patient's size 3.) Use of iterative reconstruction technique. COMPARISON: May 26, 2015 FINDINGS: Limited evaluation of the lung bases are clear. No pleural effusion. A centrally hypodense lesion in the hepatic dome with surrounding hypervascularity measuring approximately 3.0 cm may reflect a benign hemangioma though it is incompletely characterized on this study (series 3, image 16). In retrospect, it was likely present in May 2015 although the prior examination is limited without the administration of intravenous contrast. There is mild intra and extrahepatic biliary dilatation with distension of the gallbladder as well as diffuse gallbladder wall thickening. Findings are suggestive of acute cholecystitis. The spleen, bilateral adrenal glands, and pancreas are normal-appearing. The bilateral kidneys are normal-appearing aside from a punctate left lower pole renal calculus which was also present in 2015 and is nonobstructing. The small and large bowel are thin-walled and nondilated without evidence for obstruction. Normal appendix. The uterus is heterogeneous likely due to the presence of several small uterine fibroids. Right corpus luteal cyst is present. Urinary bladder is decompressed. No suspicious osseous lesions. IMPRESSION: 1. Gallbladder distension with diffuse gallbladder wall thickening highly suggestive of acute cholecystitis. Mild intra and extrahepatic biliary dilatation. 2. Incidentally noted is a 3 cm centrally hypodense hepatic lesion at the liver dome measuring up to 3 cm. Imaging findings are most characteristic of a hemangioma although this lesion can be further characterized on a non emergent hepatic protocol CT or MRI. This lesion was likely present on a scan dating back to May 2015 without significant change in size, therefore suggesting benignity. 3. Heterogeneous uterine myometrium suggesting the presence of underlying uterine leiomyomas. This can be further characterized by pelvic ultrasound as clinically indicated. Physician Armin Date Time Electronically viewed and signed by Physician Armin on 01/19/2019 16:50 PROCEDURE: Right upper quadrant ultrasound CLINICAL INDICATION: Abdominal pain TECHNIQUE: Multiple real-time images were acquired of the patient's abdomen and right retroperitoneum utilizing a high resolution transducer. COMPARISON: None FINDINGS: The liver is normal in echogenicity and measures 17.7 cm. No focal hepatic masses are seen. The gallbladder is physiologically distended. There is no evidence of gallstones, gallbladder wall thickening, or pericholecystic fluid. The intra and extrahepatic bile ducts are normal in caliber. The common bile duct measures 4.1 mm. Midline images demonstrate the pancreas to be normal in echogenicity without obvious inflammatory change. Pancreatic tail is suboptimally seen Survey views of the right kidney demonstrate no evidence of hydronephrosis or renal calculi. The right kidney measures 11.2 cm. IMPRESSION: Unremarkable right upper quadrant ultrasound. No evidence of cholelithiasis or acute cholecystitis.. RPTAT: .Aaron Arteaga MD, MD Date Time Electronically viewed and signed by .Aaron Arteaga MD, on 01/19/2019 14:44 ANDERS WILKERSON MD Jan 19, 2019 18:02
[2019-01-19] MEDS ORDERED: ONDANSETRON 4 MG INJ IV PRN (18:30)
[2019-01-19] MEDS: PIPER-TAZO 3.375 GM IV (PMX) 100 ML IVPB SCH (18:48)
[2019-01-19 20:22] VITALS: Ht 167.6 cm; Wt 74.5 kg
--- NOTE | 2019-01-19 20:30 | CONS ---
Assessment/Plan Assessment/Plan Assessment/Plan (Daily) Possible acute cholecystitis but the ultrasound and CT do not correlate. HIDA scan to further elucidate. Unclear clinical picture at this point. LFTs are elevated as well Would be surprising to have acute cholecystitis in a healthy 43-year-old female with a normal white count as well. Consultation Date/Type/Reason Admit Date/Time 01/19/19 Date/Time of Note DATE: 01/19/19 TIME: 20:25 Hx of Present Illness The patient is a 43-year-old female who developed acute onset of abdominal distention and bloating. She then developed epigastric epigastric and periumbilical pain 2 days ago while in [facility]. Pain also radiated to her back. Her symptoms improved but then worsened. She also has had a poor appetite. She denies fevers, chills or nausea or emesis. She went to an ER in [facility] and was told that she had an infection of her gallbladder. They wanted her to stay but patient lives in [place] and decided to return home. She now presented to the ER at [facility]. Past Medical History Medical History: urinary tract infection Home Meds Discontinued Scripts Neomycin Scott/Bacitrac Zn/Poly (Triple Antibiotic Ointment) 1 Each Oint.pack, 1 EACH TP BID, #7 Prov:KISHAN MORRIS PA-C 02/12/17 Acetaminophen* (Tylophen*) 500 Mg Capsule, 1 CAP PO Q6H PRN for PAIN AND OR ELEVATED TEMP, #30 CAP Prov:KISHAN MORRIS PA-C 02/09/17 Hydrocodone/Acetaminophen ([place] 5-325 Tablet) 1 Each Tablet, 1 TAB PO Q6H PRN for PAIN, #7 TAB Prov:KISHAN MORRIS PA-C 02/09/17 Cephalexin* (Keflex*) 500 Mg Capsule, 500 MG PO QID for 7 Days, CAP Prov:KISHAN MORRIS PA-C 02/09/17 Benzocaine (Orabase) 11.9 Gm Paste..g., 1 APPLIC MM DAILY for 14 Days, EA Prov:DENNY MOMINC 12/11/16 Sodium Chloride (Saline Nasal Mist) 126 Ml Mist, 2 SPRAY NASAL Q2H PRN for NASAL CONGESTION, #1 BOTTLE Prov:BRENT TURK NP 07/05/16 Omeprazole* (Omeprazole*) 20 Mg Capsule.dr, 20 MG PO QAM for 14 Days Prov:BRENT TURK NP 07/05/16 Hydrocodone Bit-Acetaminophen* ([place]*) 5-325 Mg Tab, 1 TAB PO Q4H PRN for PAIN LEVEL 6-10 for 30 Days, TAB Prov:DANIELLE ROMO MD 05/27/15 Docusate Sodium* (Colace*) 100 Mg Capsule, 100 MG PO BID for 30 Days, CAP Prov:DANIELLE ROMO MD 05/27/15 Medications Current Medications Dextrose/Sodium Chloride 1,000 ml @ 100 mls/hr Q10H IV ; Start 01/19/19 at 17:55 IV Flush (NS 3 ml) 3 ml PER PROTOCOL IV ; Start 01/19/19 at 18:00 Ondansetron HCl (Zofran Inj) 4 mg Q6H PRN IV NAUSEA/VOMITING; Start 01/19/19 at 18:00 Acetaminophen (Tylenol Tab) 650 mg Q6H PRN PO .PAIN 1-3 OR TEMP; Start 01/19/19 at 18:00 Acetaminophen/ Hydrocodone Bitart ([place] (5/325)) 1 tab Q6H PRN PO .MOD PAIN 4- 6; Start 01/19/19 at 18:00 Acetaminophen/ Hydrocodone Bitart ([place] (5/325)) 2 tab Q6H PRN PO .SEVERE PAIN 7-10; Start 01/19/19 at 18:00 Morphine Sulfate (morphine) 2 mg Q4H PRN IV .SEVERE PAIN 7-10; Start 01/19/19 at 18:00 Docusate Sodium (Colace) 100 mg Q12H PRN PO .CONSTIPATION; Start 01/19/19 at 18:00 Magnesium Hydroxide (Milk Of Mag) 30 ml DAILY PRN PO .CONSTIPATION; Start 01/19/19 at 18:00 Famotidine (Pepcid Iv) 20 mg Q12 IV ; Start 01/19/19 at 21:00 Piperacillin Sod/ Tazobactam Sod 100 ml @ 200 mls/hr Q8H IVPB Last administered on 01/19/19at 18:48; Admin Dose 200 MLS/HR; Start 01/19/19 at 18:01 Ondansetron HCl (Zofran Inj) 4 mg BRIDGE ORDER PRN IV NAUSEA/VOMITING; Start 01/19/19 at 18:30; Stop 01/20/19 at 18:29 Acetaminophen (Tylenol Tab) 650 mg ER BRIDGE PRN PO .MILD PAIN 1-3 OR TEMP; Start 01/19/19 at 18:30; Stop 01/20/19 at 18:29 Allergies: Coded Allergies: No Known Allergy (Unverified , 01/19/19) Past Surgical History Past Surgical Hx: no surgical history, other (hernia repair, cesarian section) Family History Significant Family History: no pertinent family hx Social History Alcohol Use: rarely Smoking Status: Never smoker Drug Use: none Exam/Review of Systems Exam Vitals Vital Signs Date Temp Pulse Resp B/P (MAP) Pulse Ox O2 O2 Flow FiO2 Time Delivery Rate 01/19/19 98.0 58 20 120/99 99 Room Air 19:31 (106) Constitutional: alert, oriented, well developed Head: normocephalic Eyes: nl conjunctiva ENMT: nl external ears & nose, nl lips & teeth Neck: supple, non-tender Respiratory: clear to auscultation Cardiovascular: regular rate and rhythm Gastrointestinal: soft, other (Nondistended but right upper quadrant, right flank and right lower quadrant tenderness) Extremities: normal pulses 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0 Immature Granulocytes # 0.010 Neutrophils # 4.5 Lymphocytes # 1.0 Monocytes # 0.6 Eosinophils # 0.0 Basophils # 0.0 Nucleated Red Blood Cells # 0.0 Urine Color YELLOW Urine Clarity SLIGHTLY CLOUDY A Urine pH 5.0 Urine Specific [place] 1.019 Urine Ketones 1+ H Urine Nitrite NEGATIVE Urine Bilirubin NEGATIVE Urine Urobilinogen NEGATIVE Urine Leukocyte Esterase NEGATIVE Urine Microscopic RBC 1 Urine Microscopic WBC 1 Urine Squamous Epithelial Cells MODERATE Urine Mucus MODERATE Urine Hemoglobin NEGATIVE Urine Glucose NEGATIVE Urine Total Protein NEGATIVE Sodium Level 141 Potassium Level 3.8 Chloride Level 105 Carbon Dioxide Level 26 Anion Gap 10 Blood Urea Nitrogen 12 Creatinine 0.58 Est Glomerular Filtrat Rate mL/min > 60 Glucose Level 130 Calcium Level 9.5 Total Bilirubin 0.7 Direct Bilirubin 0.00 Indirect Bilirubin 0.7 Aspartate Amino Transf (AST/SGOT) 205 H Alanine Aminotransferase (ALT/SGPT) 223 H Alkaline Phosphatase 144 H Total Protein 7.7 Albumin 4.3 Globulin 3.40 H Albumin/Globulin Ratio 1.26 Lipase 76 POC Beta HCG, Qualitative NEGATIVE Medications Medication Current Medications Dextrose/Sodium Chloride 1,000 ml @ 100 mls/hr Q10H IV ; Start 01/19/19 at 17:55 IV Flush (NS 3 ml) 3 ml PER PROTOCOL IV ; Start 01/19/19 at 18:00 Ondansetron HCl (Zofran Inj) 4 mg Q6H PRN IV NAUSEA/VOMITING; Start 01/19/19 at 18:00 Acetaminophen (Tylenol Tab) 650 mg Q6H PRN PO .PAIN 1-3 OR TEMP; Start 01/19/19 at 18:00 Acetaminophen/ Hydrocodone Bitart ([place] (5/325)) 1 tab Q6H PRN PO .MOD PAIN 4- 6; Start 01/19/19 at 18:00 Acetaminophen/ Hydrocodone Bitart ([place] (5/325)) 2 tab Q6H PRN PO .SEVERE PAIN 7-10; Start 01/19/19 at 18:00 Morphine Sulfate (morphine) 2 mg Q4H PRN IV .SEVERE PAIN 7-10; Start 01/19/19 at 18:00 Docusate Sodium (Colace) 100 mg Q12H PRN PO .CONSTIPATION; Start 01/19/19 at 18:00 Magnesium Hydroxide (Milk Of Mag) 30 ml DAILY PRN PO .CONSTIPATION; Start 01/19/19 at 18:00 Famotidine (Pepcid Iv) 20 mg Q12 IV ; Start 01/19/19 at 21:00 Piperacillin Sod/ Tazobactam Sod 100 ml @ 200 mls/hr Q8H IVPB Last administered on 01/19/19at 18:48; Admin Dose 200 MLS/HR; Start 01/19/19 at 18:01 Ondansetron HCl (Zofran Inj) 4 mg BRIDGE ORDER PRN IV NAUSEA/VOMITING; Start 01/19/19 at 18:30; Stop 01/20/19 at 18:29 Acetaminophen (Tylenol Tab) 650 mg ER BRIDGE PRN PO .MILD PAIN 1-3 OR TEMP; Start 01/19/19 at 18:30; Stop 01/20/19 at 18:29 MITA PULLIAM MD Jan 19, 2019 20:30
[2019-01-19 20:43] VITALS: BP 132/72; PULSE 55; RESP 18
[2019-01-19] MEDS: FAMOTIDINE 20 MG INJ IV SCH (20:50)
[2019-01-19] MEDS: DEXTROSE 5%-0.45% NACL 1,000 ML IV SCH (20:50)
[2019-01-19] MEDS: morphine 2 MG INJ IV PRN (23:55)
[2019-01-20] VITALS (17 sets, daily range): BP systolic 90–128; BP diastolic 47–74; PULSE 56–110; RESP 17–20
[2019-01-20] MEDS: ONDANSETRON 4 MG INJ IV PRN ×3 (00:17→20:11)
[2019-01-20] MEDS: PIPER-TAZO 3.375 GM IV (PMX) 100 ML IVPB SCH ×4 (02:05→20:11)
[2019-01-20] MEDS: KETOROLAC 30 MG INJ IV PRN ×4 (02:05→21:03)
[2019-01-20] MEDS: DEXTROSE 5%-0.45% NACL 1,000 ML IV SCH ×3 (03:55→23:55)
[2019-01-20] MEDS: morphine 2 MG INJ IV PRN (05:40)
[2019-01-20] MEDS ORDERED: morphine 2 MG INJ IV STA (07:33)
[2019-01-20] MEDS: FAMOTIDINE 20 MG INJ IV SCH ×2 (07:42→20:11)
[2019-01-20] MEDS ORDERED: LORAZEPAM 2 MG INJ IV ONE (08:00)
--- NOTE | 2019-01-20 11:48 | PN ---
Date/Time of Note Date/Time of Note DATE: 01/20/19 TIME: 11:48 Objective Vitals Vital Signs Date Temp Pulse Resp B/P (MAP) Pulse Ox O2 O2 Flow FiO2 Time Delivery Rate 01/20/19 98.2 68 19 128/67 98 08:01 (87) 01/19/19 Room Air 19:31 Intake and Output 01/19/19 01/19/19 01/20/19 1515:00 23:00 07:00 IntakeIntake Total 1130 ml 900 ml OutputOutput Total 150 ml BalanceBalance 1130 ml 750 ml Results Result Diagram: 01/20/198 01/20/198 Medications Medications Current Medications Dextrose/Sodium Chloride 1,000 ml @ 100 mls/hr Q10H IV Last administered on 01/20/19at 09:55; Admin Dose 100 MLS/HR; Start 01/19/19 at 17:55 IV Flush (NS 3 ml) 3 ml PER PROTOCOL IV ; Start 01/19/19 at 18:00 Ondansetron HCl (Zofran Inj) 4 mg Q6H PRN IV NAUSEA/VOMITING Last administered on 01/20/19at 06:25; Admin Dose 4 MG; Start 01/19/19 at 18:00 Acetaminophen (Tylenol Tab) 650 mg Q6H PRN PO .PAIN 1-3 OR TEMP Last administered on 01/19/19at 21:19; Admin Dose 650 MG; Start 01/19/19 at 18:00 Acetaminophen/ Hydrocodone Bitart ([place] (5/325)) 1 tab Q6H PRN PO .MOD PAIN 4- 6; Start 01/19/19 at 18:00 Acetaminophen/ Hydrocodone Bitart ([place] (5/325)) 2 tab Q6H PRN PO .SEVERE PAIN 7-10; Start 01/19/19 at 18:00 Docusate Sodium (Colace) 100 mg Q12H PRN PO .CONSTIPATION; Start 01/19/19 at 18:00 Magnesium Hydroxide (Milk Of Mag) 30 ml DAILY PRN PO .CONSTIPATION; Start 01/19/19 at 18:00 Famotidine (Pepcid Iv) 20 mg Q12 IV Last administered on 01/20/19at 07:42; Admin Dose 20 MG; Start 01/19/19 at 21:00 Ondansetron HCl (Zofran Inj) 4 mg BRIDGE ORDER PRN IV NAUSEA/VOMITING; Start 01/19/19 at 18:30; Stop 01/20/19 at 18:29 Acetaminophen (Tylenol Tab) 650 mg ER BRIDGE PRN PO .MILD PAIN 1-3 OR TEMP; Start 01/19/19 at 18:30; Stop 01/20/19 at 18:29 Ketorolac Tromethamine (Toradol) 30 mg Q6H PRN IV PAIN LEVEL 1-3 Last administered on 01/20/19at 08:15; Admin Dose 30 MG; Start 01/19/19 at 21:30; Stop 01/22/19 at 21:29 Morphine Sulfate (morphine) 4 mg Q4H PRN IV .SEVERE PAIN 7-10; Start 01/20/19 at 14:00 Piperacillin Sod/ Tazobactam Sod 100 ml @ 200 mls/hr Q6H IVPB ; Start 01/20/19 at 15:30 Lorazepam (Ativan) 0.5 mg Q8H PRN IV anxiety; Start 01/20/19 at 12:00 VTE Prophylaxis Risk score (from Ns)>0 risk: 2 SCD applied (from Ns): Yes Lines/Catheters IV Catheter Type: Moe in Place: No Assessment/Plan Hospital Course Subjective Patient's pain and anxiety is controlled for now Objective Physical exam General: Patient is laying in bed and answers questions appropriately Mentation: Patient is alert and oriented 4, Head: Normocephalic atraumatic Eyes: EOMI, pupils reactive to light Neck: Supple, nontender, midline Respiratory: Clear to auscultation bilaterally Cardiovascular: regular rate, no obvious murmurs Gastrointestinal: Moderately tender to palpation, bowel sounds heard. Neurological: Moves all extremities spontaneously Skin: No new skin lesions Assessment and plan Acute cholecystitis -Patient scheduled for surgery later today -Continue IV antibiotic -N.p.o. 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 3 cm hypodense hepatic lesion -Likely present in scan done in 2014 without significant change in size, likely benign -Can be further characterized with nonemergent hepatic protocol MRI or CT, will monitor for now, explained to patient the need to follow-up with outpatient physician for follow-up. Transaminitis -Trending down, GI recommendations appreciated -Monitor closely, of note patient was recently in [place] -This may be sequelae of past gallstone, will defer to GI for further recommendations Disposition -Pending surgery today ARAVIND SCHAEFER Jan 20, 2019 11:48
[2019-01-20] MEDS ORDERED: PIPER-TAZO 3.375 GM IV (PMX) 100 ML IVPB SCH ×2 (12:00→18:00)
[2019-01-20] MEDS ORDERED: LORAZEPAM 2 MG INJ IV PRN (12:00)
[2019-01-20] MEDS ORDERED: morphine 4 MG/ML VIAL IV PRN ×2 (14:00→17:30)
--- NOTE | 2019-01-20 14:43 | PN ---
Date/Time of Note Date/Time of Note DATE: 01/20/19 TIME: 14:39 Assessment/Plan Lines/Catheters IV Catheter Type (from Nrs): Moe in Place (from Nrs): No Assessment/Plan Assessment/Plan Discussed discordance of CT and U/S w/ radiolgy. HIDA scan confirms acute cholecystitis. Discussed surgery w/ patient. Patient agrees. Discussed laparoscopic, possible open cholecystectomy, possible cholangiogram. All benefits, risks, alternatives discussed in detail. Was very upfront with p atient about potential complications with patient as her gallbladder is quite distended and the process is been going on for more than 3 days. . All questions answered Subjective 24 Hr Interval Summary Subjective hx not possible: other Constitutional: other (Still c/o pain) Exam/Review of Systems Vital Signs Vitals Vital Signs Date Temp Pulse Resp B/P (MAP) Pulse Ox O2 O2 Flow FiO2 Time Delivery Rate 01/20/19 98.0 70 18 125/74 100 15:26 (91) 01/19/19 Room Air 19:31 Intake and Output 01/19/19 01/19/19 01/20/19 1515:00 23:00 07:00 IntakeIntake Total 1130 ml 900 ml OutputOutput Total 150 ml BalanceBalance 1130 ml 750 ml Exam Constitutional: alert, oriented, well developed Neck: supple Respiratory: clear to auscultation Cardiovascular: regular rate and rhythm Gastrointestinal: soft, tender (to RUQ) Results Result Diagram: 01/20/19 0428 01/20/19 0428 Procedures Procedures Patient: RIC XIONG : 1975 Age: 43 Sex: F MR #: [id number] DOS: 01/19/19 0000 Ordering MD: ANEDRS WILKERSON MD Location: [facility] [place] Room/Bed: [facility] AMENDMENT: 01/20/2019 9:53:33 AM Terri Stanford M.d Technique: The patient was given an intravenous injection of 7.9 mCi of Tc-99m mebrofenin. Additional delayed images of the abdomen were obtained at 11 hours post injection, which demonstrate a persistent nonvisualization of the gallbladder. AMENDMENT: 01/20/2019 1:09:58 AM Torito Contreras M.d Note: The administered radionuclide dose is not available at the time of this dictation. PROCEDURE: Radionuclide hepatobiliary scan CLINICAL INDICATION: Right upper quadrant pain TECHNIQUE: Abdominal imaging was performed following intravenous administration of number millicuries of technetium-99m labeled mebrofenin. Sequential imaging was performed for 60 minutes. COMPARISON: CT and ultrasound earlier same date. FINDINGS: There is good hepatic uptake of activity. Biliary ductal activity is apparent at 10-15 minutes. Gallbladder activity is not detected out to 80 minutes. The gallbladder fossa is identified as a photopenic region adjacent to the medial aspect of the right lobe of the liver. This corresponds precisely with position seen on CT. Small bowel activity is identified at 15-20 minutes. There is very prominent accumulation of activity in the second and proximal third portion of the duodenum on the images in the later portion of the study. This activity lies posteromedial to the gallbladder. IMPRESSION: 1. Findings compatible with cystic duct obstruction and acute cholecystitis. RPTAT:AAJJ .Terri Stanford MD, Date Time Electronically viewed and signed by .Terri Stanford MD, on 01/20/2019 09:53 .L/ CC: ANDERS WILKERSON MD [id number] MITA PULLIAM MD Jan 20, 2019 14:43
[2019-01-20] MEDS ORDERED: BUPIVACAINE 0.25%/EPI (SDV) 30 ML INJ ONE (15:58)
[2019-01-20] MEDS ORDERED: LIDOCAINE 1% (MPF) 30 ML INJ ONE (15:58)
--- NOTE | 2019-01-20 16:29 | QN ---
Documentation Comment pt is off the floor will assess in RIKY Nettles Jan 20, 2019 16:29
--- NOTE | 2019-01-20 17:16 | OPR ---
Date/Time of Note Date/Time of Note DATE: 01/20/19 TIME: 17:11 Operative Report Preoperative Diagnosis Acute cholecystitis Postoperative Diagnosis Same Operation/Procedure Performed Laparoscopic cholecystectomy Surgeon see signature line Currency Examiner None Anesthesia Type: general Anesthesiologist: Abraham Manjarrez M.D. Estimated Blood Loss: 100 - 150 ml's Transfusion none Specimen Gallbladder Grafts/Implants none Complications none Pt Condition Post Procedure: stable Disposition: PACU Indications The patient is a 43-year-old female with a four-day history of right upper quadrant abdominal pain. An ultrasound was within normal limits. However a CT scan revealed a very edematous and distended gallbladder. However, no stones were noted on the ultrasound or CT. HIDA scan was performed and was consistent with acute cholecystitis. I discussed proceeding with a laparoscopic, possible open, cholecystectomy, possible pleasure with the patient. All benefits, risks, alternatives discussed in detail. All questions were answered. The patient elected to proceed. Procedure Description The patient was brought to operative room and placed supine on the table. After preop antibiotics and SCDs were applied, the patient was intubated. The abdomen was cleaned, prepped, and draped in usual sterile fashion. A 11 mm incision was made in the umbilicus. Using a 5mm laparoscope containing trocar, the abdomen was entered under direct vision and insufflated to 15 mmHg of CO2. The following trochars in place and direct vision right lower quadrant 5 mm, right upper quadrant 5 mm, and a subxiphoid 5 mm. The 5 mm umbilical troc ar was exchanged to an 11mm under direct vision. The gallbladder was visualized. It was edematous and thickened. It was quite dilated. An aspirating needle was placed in the gallbladder and approximately 100 cc of white bile was aspirated. The gallbladder was decompressed and now was able to be grasped and retracted over the liver. Piña's pouch was identified and retracted laterally. At this point, I noted that there was an obvious stone and Piña's pouch. I then scored the peritoneum underneath Piña's medially and laterally. I was able to dissect out and skeletonized the cystic duct and artery. I dissected the gallbladder off the cystic plate of the liver. I now had my critical view of safety where semi-duct and artery free with no intervening structures. The duct and artery were both clipped twice proximally once distally, individually, and then divided. The gallbladder was then removed and the gallbladder fossa with electrocautery and placed in Endo Catch bag. The gallbladder was removed from the level of the trocar site. I irrigated and aspirated out the gallbladder fossa until effluent was clear. I visualized the gallbladder fossa. It was hemostatic. There was no evidence of bleeding or bile staining. At this point, all trochars were removed. The fascia of the 12 mm trocar site was closed with 0 Vicryl. Skin incisions were all closed with 4 Monocryl, Mastisol, and Steri-Strips. A 2 x 2 gauze and Tegaderm was placed over the umbilical incision only. The patient on procedure well, was extubated the OR, transferred to the recovery room in stable condition. MITA PULLIAM MD Jan 20, 2019 17:16
--- NOTE | 2019-01-20 17:24 | PREAC ---
Date/Time of Note Date/Time of Note DATE: 01/20/19 TIME: 17:23 Anesthesia Eval and Record Evaluation Time Pre-Procedure Interview DATE: 01/20/19 TIME: 17:23 Age 43 Sex female NPO: 8 hrs Preoperative diagnosis SYMPTOMATIC CHOLELITHIASIS Planned procedure LAP DONNA Past Medical History Past Medical History: None Surgery & Anesthesia Issues No known issue Meds Anticoagulation: No Beta William within 24 hr: No Reason Beta William not given: Pt. not on B-William Discontinued Scripts Neomycin Scott/Bacitrac Zn/Poly (Triple Antibiotic Ointment) 1 Each Oint.pack, 1 EACH TP BID, #7 Prov:KISHAN MORRSI-C 02/12/17 Acetaminophen* (Tylophen*) 500 Mg Capsule, 1 CAP PO Q6H PRN for PAIN AND OR ELEVATED TEMP, #30 CAP Prov:KISHAN MORRIS-C 02/09/17 Hydrocodone/Acetaminophen ([place] 5-325 Tablet) 1 Each Tablet, 1 TAB PO Q6H PRN for PAIN, #7 TAB Prov:KISHAN MORRIS-C 02/09/17 Cephalexin* (Keflex*) 500 Mg Capsule, 500 MG PO QID for 7 Days, CAP Prov:KISHAN MORRIS-C 02/09/17 Benzocaine (Orabase) 11.9 Gm Paste..g., 1 APPLIC MM DAILY for 14 Days, EA Prov:DENNY MOMIN-C 12/11/16 Sodium Chloride (Saline Nasal Mist) 126 Ml Mist, 2 SPRAY NASAL Q2H PRN for NASAL CONGESTION, #1 BOTTLE Prov:BRENT TURK NP 07/05/16 Omeprazole* (Omeprazole*) 20 Mg Capsule.dr, 20 MG PO QAM for 14 Days Prov:BRENT TURK NP 07/05/16 Hydrocodone Bit-Acetaminophen* ([place]*) 5-325 Mg Tab, 1 TAB PO Q4H PRN for PAIN LEVEL 6-10 for 30 Days, TAB Prov:DANIELLE ROMO MD 05/27/15 Docusate Sodium* (Colace*) 100 Mg Capsule, 100 MG PO BID for 30 Days, CAP Prov:DANIELLE ROMO MD 05/27/15 Current Medications Dextrose/Sodium Chloride 1,000 ml @ 100 mls/hr Q10H IV Last administered on 01/20/19at 09:55; Admin Dose 100 MLS/HR; Start 01/19/19 at 17:55 IV Flush (NS 3 ml) 3 ml PER PROTOCOL IV ; Start 01/19/19 at 18:00 Ondansetron HCl (Zofran Inj) 4 mg Q6H PRN IV NAUSEA/VOMITING Last administered on 01/20/19at 06:25; Admin Dose 4 MG; Start 01/19/19 at 18:00 Acetaminophen (Tylenol Tab) 650 mg Q6H PRN PO .PAIN 1-3 OR TEMP Last administered on 01/19/19at 21:19; Admin Dose 650 MG; Start 01/19/19 at 18:00 Acetaminophen/ Hydrocodone Bitart ([place] (5/325)) 1 tab Q6H PRN PO .MOD PAIN 4- 6; Start 01/19/19 at 18:00 Acetaminophen/ Hydrocodone Bitart ([place] (5/325)) 2 tab Q6H PRN PO .SEVERE PAIN 7-10; Start 01/19/19 at 18:00 Docusate Sodium (Colace) 100 mg Q12H PRN PO .CONSTIPATION; Start 01/19/19 at 18:00 Magnesium Hydroxide (Milk Of Mag) 30 ml DAILY PRN PO .CONSTIPATION; Start 01/19/19 at 18:00 Famotidine (Pepcid Iv) 20 mg Q12 IV Last administered on 01/20/19at 07:42; Admin Dose 20 MG; Start 01/19/19 at 21:00 Ondansetron HCl (Zofran Inj) 4 mg BRIDGE ORDER PRN IV NAUSEA/VOMITING; Start 01/19/19 at 18:30; Stop 01/20/19 at 18:29 Acetaminophen (Tylenol Tab) 650 mg ER BRIDGE PRN PO .MILD PAIN 1-3 OR TEMP; Start 01/19/19 at 18:30; Stop 01/20/19 at 18:29 Ketorolac Tromethamine (Toradol) 30 mg Q6H PRN IV PAIN LEVEL 1-3 Last administered on 01/20/19at 15:36; Admin Dose 30 MG; Start 01/19/19 at 21:30; Stop 01/22/19 at 21:29 Morphine Sulfate (morphine) 4 mg Q4H PRN IV .SEVERE PAIN 7-10 Last administered on 01/20/19at 13:21; Admin Dose 4 MG; Start 01/20/19 at 14:00 Piperacillin Sod/ Tazobactam Sod 100 ml @ 200 mls/hr Q6H IVPB Last administered on 01/20/19at 15:36; Admin Dose 200 MLS/HR; Start 01/20/19 at 15:30 Lorazepam (Ativan) 0.5 mg Q8H PRN IV anxiety Last administered on 01/20/19at 15:36; Admin Dose 0.5 MG; Start 01/20/19 at 12:00 Piperacillin Sod/ Tazobactam Sod 100 ml @ 200 mls/hr Q6 IVPB ; Start 01/20/19 at 18:00; Status UNV Ondansetron HCl (Zofran Inj) 4 mg Q6H PRN IV NAUSEA AND/OR VOMITING; Start 01/20/19 at 17:30; Status UNV Morphine Sulfate (morphine) 4 mg Q2H PRN IV BREAKTHROUGH PAIN; Start 01/20/19 at 17:30; Status UNV Acetaminophen (Tylenol Tab) 650 mg Q6H PRN PO MILD PAIN(1-3)OR ELEVATED TEMP; Start 01/20/19 at 17:30; Status UNV Ibuprofen (Motrin) 600 mg Q6H PRN PO PAIN LEVEL 1-5; Start 01/20/19 at 17:30; Status UNV Acetaminophen/ Hydrocodone Bitart ([place] (5/325)) 1 tab Q6H PRN PO PAIN LEVEL 6-10; Start 01/20/19 at 17:30; Status UNV Potassium Chloride/Dextrose/ Sod Cl 1,000 ml @ 100 mls/hr Q10H IV ; Start 01/20/19 at 17:16; Status UNV Enoxaparin Sodium (Lovenox) 40 mg DAILY@07 SC ; Start 01/21/19 at 07:00; Status UNV Meds reviewed: Yes Allergies Coded Allergies: No Known Allergy (Unverified , 01/19/19) Allergies Reviewed: Yes Labs/Studies Labs Reviewed: Reviewed by anesthesiologist Result Diagram: 01/20/19 0428 01/20/19 0428 Laboratory Tests 01/20/19 04:28 test: Negative Pre-procedure Exam Last vitals Vital Signs Date Temp Pulse Resp B/P (MAP) Pulse Ox O2 O2 Flow FiO2 Time Delivery Rate 01/20/19 98.0 70 18 125/74 100 15:26 (91) 01/19/19 Room Air 19:31 Airway: Adequate mouth opening, Adequate thyromental dist Mallampati: Mallampati II Teeth: Normal Lung: Normal Heart: Normal ASA Physical Status ASA physical status: 1 Emergency: None Planned Anesthetic General/MAC: ETT Planned Pain Management Parenteral pain med Pre-operative Attestations Prior to commencing anesthesia and surgery, the patient was re-evaluated, there was verification of: *The patient's identity *The results of appropriate recent lab work and preoperative vital signs *The above evaluation not changing prior to induction *Anesthetic plan, risk benefits, alternative and complications discussed with patient/family; questions answered; patient/family understands, accepts and wishes to proceed. Abraham Manjarrez M.D. Jan 20, 2019 17:24
[2019-01-20] MEDS ORDERED: ONDANSETRON 4 MG INJ ONE (17:26)
[2019-01-20] MEDS ORDERED: NEOSTIGMINE 3 MG/3 ML SYRINGE ONE (17:26)
[2019-01-20] MEDS ORDERED: PROPOFOL 20 ML ONE (17:26)
[2019-01-20] MEDS ORDERED: DEXAMETHASONE 4 MG/ML 5 ML INJ ONE (17:26)
[2019-01-20] MEDS ORDERED: CEFAZOLIN 1 GM INJ ONE (17:26)
[2019-01-20] MEDS ORDERED: MIDAZOLAM 1 MG/ML 2 ML INJ ONE (17:26)
[2019-01-20] MEDS ORDERED: GLYCOPYRROLATE 0.4 MG INJ ONE (17:26)
[2019-01-20] MEDS ORDERED: FENTAnyl 50 MCG/ML VIAL ONE ×2 (17:26→18:05)
[2019-01-20] MEDS ORDERED: ROCURONIUM 50 MG INJ ONE (17:26)
[2019-01-20] MEDS ORDERED: IPRATROPIUM (NEB) 0.5 MG/2.5 ML AMP HHN PRN (17:30)
[2019-01-20] MEDS ORDERED: TRIMETHOBENZAMIDE 100 MG/ML VIAL IM PRN (17:30)
[2019-01-20] MEDS ORDERED: IBUPROFEN 600 MG TAB PO PRN (17:30)
[2019-01-20] MEDS ORDERED: FENTAnyl 50 MCG/ML VIAL IV PRN ×3 (17:30)
[2019-01-20] MEDS ORDERED: MEPERIDINE 25 MG INJ IV PRN (17:30)
[2019-01-20] MEDS ORDERED: ACETAMINOPHEN 325 MG TAB PO PRN (17:30)
[2019-01-20] MEDS ORDERED: HYDROmorphONE 1 MG/5 ML IV SYRINGE IV PRN ×3 (17:30)
[2019-01-20] MEDS ORDERED: LABETALOL HCL 20MG INJ IV PRN (17:30)
[2019-01-20] MEDS ORDERED: HYDROCODONE/APAP (5/325) TAB PO PRN (17:30)
[2019-01-20] MEDS ORDERED: DIPHENHYDRAMINE 50 MG INJ IV PRN (17:30)
[2019-01-20] MEDS ORDERED: MIDAZOLAM 1 MG/ML 2 ML INJ IV PRN (17:30)
[2019-01-20] MEDS ORDERED: ALBUTEROL 0.083% (NEB) 2.5 MG/3 ML AMP HHN PRN (17:30)
[2019-01-20] MEDS ORDERED: hydrALAzine 20 MG INJ IV PRN (17:30)
[2019-01-20] MEDS ORDERED: EPHEDrine 25 MG/5 ML SYG IV PRN (17:30)
[2019-01-20] MEDS ORDERED: ONDANSETRON 4 MG INJ IV PRN ×2 (17:30)
[2019-01-20] MEDS ORDERED: OXYCODONE/ACETAMINOPHEN (5/325) TAB PO PRN ×2 (17:30)
[2019-01-20] MEDS: D5-NS + KCL 20 MEQ 1,000 ML IV SCH (20:11)
[2019-01-20] MEDS ORDERED: SOD CHLORIDE 0.9% 500 ML IV ONE (23:30)
[2019-01-21] VITALS (8 sets, daily range): BP systolic 80–112; BP diastolic 50–83; PULSE 65–77; RESP 17–18
[2019-01-21] MEDS ORDERED: SOD CHLORIDE 0.9% 500 ML IV ONE (02:00)
[2019-01-21] MEDS: D5-NS + KCL 20 MEQ 1,000 ML IV SCH ×3 (03:16→20:26)
[2019-01-21] MEDS: PIPER-TAZO 3.375 GM IV (PMX) 100 ML IVPB SCH ×4 (03:25→20:40)
[2019-01-21] MEDS: KETOROLAC 30 MG INJ IV PRN (06:02)
[2019-01-21] MEDS: FAMOTIDINE 20 MG INJ IV SCH (09:41)
[2019-01-21] MEDS: ENOXAPARIN 40 MG/0.4 ML SYG SC SCH (09:45)
[2019-01-21] MEDS: DEXTROSE 5%-0.45% NACL 1,000 ML IV SCH (09:55)
--- NOTE | 2019-01-21 13:08 | PN ---
Date/Time of Note Date/Time of Note DATE: 01/21/19 TIME: 13:05 Objective Vitals Vital Signs Date Temp Pulse Resp B/P (MAP) Pulse Ox O2 O2 Flow FiO2 Time Delivery Rate 01/21/19 99.0 77 18 104/59 96 09:08 (74) 01/20/19 Room Air 23:00 01/20/19 2.0 19:08 Intake and Output 01/20/19 01/20/19 01/21/19 1515:00 23:00 07:00 IntakeIntake Total 900 ml 2300 ml 1500 ml OutputOutput Total 75 ml BalanceBalance 900 ml 2225 ml 1500 ml Results Result Diagram: 01/21/19 0428 01/21/19 0428 Medications Medications Current Medications IV Flush (NS 3 ml) 3 ml PER PROTOCOL IV ; Start 01/19/19 at 18:00 Ondansetron HCl (Zofran Inj) 4 mg Q6H PRN IV NAUSEA/VOMITING Last administered on 01/20/19at 20:11; Admin Dose 4 MG; Start 01/19/19 at 18:00 Acetaminophen (Tylenol Tab) 650 mg Q6H PRN PO .PAIN 1-3 OR TEMP Last administered on 01/19/19at 21:19; Admin Dose 650 MG; Start 01/19/19 at 18:00 Acetaminophen/ Hydrocodone Bitart ([place] (5/325)) 1 tab Q6H PRN PO .MOD PAIN 4- 6 Last administered on 01/21/19at 06:55; Admin Dose 1 TAB; Start 01/19/19 at 18:00 Acetaminophen/ Hydrocodone Bitart ([place] (5/325)) 2 tab Q6H PRN PO .SEVERE PAIN 7-10; Start 01/19/19 at 18:00 Docusate Sodium (Colace) 100 mg Q12H PRN PO .CONSTIPATION; Start 01/19/19 at 18:00 Magnesium Hydroxide (Milk Of Mag) 30 ml DAILY PRN PO .CONSTIPATION; Start 01/19/19 at 18:00 Famotidine (Pepcid Iv) 20 mg Q12 IV Last administered on 01/21/19at 09:41; Admin Dose 20 MG; Start 01/19/19 at 21:00 Ketorolac Tromethamine (Toradol) 30 mg Q6H PRN IV PAIN LEVEL 1-3 Last administered on 01/21/19 06:02; Admin Dose 30 MG; Start 01/19/19 at 21:30; Stop 01/22/19 at 21:29 Morphine Sulfate (morphine) 4 mg Q4H PRN IV .SEVERE PAIN 7-10 Last administered on 01/20/19 13:21; Admin Dose 4 MG; Start 01/20/19 at 14:00 Piperacillin Sod/ Tazobactam Sod 100 ml @ 200 mls/hr Q6H IVPB Last administered on 01/21/19 09:41; Admin Dose 200 MLS/HR; Start 01/20/19 at 15:30 Lorazepam (Ativan) 0.5 mg Q8H PRN IV anxiety Last administered on 01/20/19 15:36; Admin Dose 0.5 MG; Start 01/20/19 at 12:00 Ondansetron HCl (Zofran Inj) 4 mg Q6H PRN IV NAUSEA AND/OR VOMITING; Start 01/20/19 at 17:30 Morphine Sulfate (morphine) 4 mg Q4H PRN IV SEVERE PAIN LEVEL 7-10; Start 01/20/19 at 17:30 Acetaminophen (Tylenol Tab) 650 mg Q6H PRN PO MILD PAIN(1-3)OR ELEVATED TEMP; Start 01/20/19 at 17:30 Ibuprofen (Motrin) 600 mg Q6H PRN PO PAIN LEVEL 1-5 Last administered on 09:44; Admin Dose 600 MG; Start 01/20/19 at 17:30 Acetaminophen/ Hydrocodone Bitart ([place] (5/325)) 1 tab Q6H PRN PO PAIN LEVEL 6-10; Start 01/20/19 at 17:30 Enoxaparin Sodium (Lovenox) 40 mg DAILY@0900 SC Last administered on 01/21/19 09:45; Admin Dose 40 MG; Start 01/21/19 at 09:00 Potassium Chloride/Dextrose/ Sod Cl 1,000 ml @ 100 mls/hr Q10H IV Last administered on 01/21/19 12:06; Admin Dose 100 MLS/HR; Start 01/21/19 at 12:00 VTE Prophylaxis Risk score (from Ns)>0 risk: 2 SCD applied (from Nsg): Yes Lines/Catheters IV Catheter Type: Moe in Place: No Assessment/Plan Hospital Course Subjective Patient doing well after surgery Objective Physical exam General: Patient is laying in bed and answers questions appropriately Mentation: Patient is alert and oriented 4, Head: Normocephalic atraumatic Eyes: EOMI, pupils reactive to light Neck: Supple, nontender, midline Respiratory: Clear to auscultation bilaterally Cardiovascular: regular rate, no obvious murmurs Gastrointestinal: Mildly tender to palpation, bowel sounds heard. Neurological: Moves all extremities spontaneously Skin: No new skin lesions Assessment and plan Acute cholecystitis -Patient doing well status post laparoscopic cholecystectomy -Continue IV antibiotic -Advance diet as tolerated -IV fluid Mild intrahepatic and extrahepatic biliary dilation, resolved -AST and ALT mildly elevated, resolving -MRCP was negative for biliary duct dilatation Uterine fibroid versus polyp -Explained to patient and patient's boyfriend in detail the follow-up needed, MRI pending -Patient understood and will follow up with [facility]. 3 cm hypodense hepatic lesion -Likely present in scan done in 2014 without significant change in size, likely benign -MRI done, MRCP stating no significant lesions in the hepatic region, will follow up with her primary care provider. Transaminitis -Trending down, -Monitor closely, of note patient was recently in [place] -This may be related to the acute cholecystitis however it is downtrending, may also be secondary to her recent visit to [place] and possible alcohol use Disposition -Ambulate, increase diet, monitor white count as it is mildly elevated, continue antibiotics, likely DC tomorrow. ARAVIND SCHAEFER Jan 21, 2019 13:08
[2019-01-21] MEDS: HYDROCODONE/APAP (5/325) TAB PO PRN ×2 (15:13→21:25)
[2019-01-21] MEDS: FAMOTIDINE 20 MG TAB PO SCH (20:40)
[2019-01-22 02:15] VITALS: BP 101/56; PULSE 54; RESP 17
[2019-01-22] MEDS: PIPER-TAZO 3.375 GM IV (PMX) 100 ML IVPB SCH ×2 (02:56→09:08)
[2019-01-22] MEDS: HYDROCODONE/APAP (5/325) TAB PO PRN (07:05)
[2019-01-22] MEDS: D5-NS + KCL 20 MEQ 1,000 ML IV SCH (07:07)
[2019-01-22 07:33] VITALS: BP 116/62; PULSE 53; RESP 16
[2019-01-22] MEDS: FAMOTIDINE 20 MG TAB PO SCH (08:58)
[2019-01-22] MEDS: ENOXAPARIN 40 MG/0.4 ML SYG SC SCH (09:03)
[2019-01-22] MEDS ORDERED: LORAZEPAM 1 MG TAB PO PRN (13:00)
--- NOTE | 2019-01-22 13:33 | PDOCDIS ---
Discharge Instructions CONDITION [id number] Patient Condition: [id number] Stable HOME CARE INSTRUCTIONS: Pennie Diet Instructions: Loni Low Fat /Cholesterol ACTIVITY: Pennie Activity Restrictions: [id number] Slowly Increase Activity Rest between Activity Avoid heavy lifting Do not operate Machinery FOLLOW UP/APPOINTMENTS Follow-up Plan 1. Please follow-up with your internal medicine doctor in order to fully evaluate your hemoglobin levels and other reasons for anemia. Your last value at [facility] was 8.7 for your hemoglobin. Please also monitor your liver function values as they were mildly elevated at discharge [facility], your AST was 32 and your ALT was 86. Please also bring up to your internal medicine doctor that a CT scan showed a questionable 3 cm hypodense lesion in the liver however follow-up MRI of the abdomen did not show any lesions in the liver and to keep an eye on it. 2. Please follow-up with your FIELD DIRECTOR to continue to monitor several small fibroids in your uterus as well as you are 1.3 cm hemorrhagic cyst on the left ovary. 3 please follow-up with Dr. Suárez within 1 week, general surgery 4. If you are not able to follow-up with a primary care provider within 1 week please go to an urgent care and get the following lab values drawn to ensure stability -Hemoglobin and hematocrit, current hemoglobin is 8.7 -Liver function test, current AST is 32 and ALT is 86 REFERRALS Pennie Referring Provider: MITA Mccloud MD, DAVID J Jan 22, 2019 13:33
[2019-01-22] MEDS ORDERED: TRAM50TA2 PO (13:35)
--- NOTE | 2019-01-22 13:42 | DS ---
Date/Time of Note Date/Time of Note DATE: 01/22/19 TIME: 13:42 Discharge Summary Admission/Discharge Info Admit Date/Time Jan 19, 2019 at 18:28 Discharge Date/Time Patient Condition: Stable Hospital Course Patient is a female with no significant past medical history who presents to [facility] for abdominal pain. Patient was diagnosed with acute cholecystitis and was taken to surgery by general surgeon. Patient did well in the postoperative state, patient continue to work with physical therapy and had adequate pain management with oral medications. Of note patient was kept overnight after surgery due to mildly elevated white count however this was likely due to surgery. Patient's white count has normalized the day after. Of note patient did have some blood loss with the surgery and it was recommended that she follow-up with her primary care provider to get a repeat hemoglobin level as well as work-up for her anemia. Patient states that she will follow-up as soon as possible. Patient also had incidental findings of uterine fibroid and hemorrhagic cyst in the ovary and will be provided with the MRI results with strict instructions to follow-up with her RN TELEMETRY for repeat ultrasound within a few weeks. Patient understands and will make an appointment with her RN TELEMETRY. Patient's hemorrhagic cyst is not causing any symptoms, does not appear to have ruptured per MRI and patient is hemodynamically stable. Also of note patient did have an elevated transaminitis which was likely due to above cholecystitis, with resolving AST and ALT values to near normal levels on day of discharge. It was also explained to the patient to get a repeat liver function test within 1 week. Patient also had it incidental 3 cm hypodense hepatic lesion on CT however when MRI was done did not find any abnormalities. However patient will bring imaging to her primary care provider to follow-up. Patient also knows to follow-up with general surgeon within 1 week Discharge diagnosis Acute cholecystitis, status post lap cholecystectomy, doing well Transaminitis Uterine fibroid Hemorrhagic cyst Ovarian cyst Mild leukocytosis, resolved Anemia, stable Home Meds Discontinued Scripts Neomycin Scott/Bacitrac Zn/Poly (Triple Antibiotic Ointment) 1 Each Oint.pack, 1 EACH TP BID, #7 Prov:KISHAN MORRIS PA-C 02/12/17 Acetaminophen* (Tylophen*) 500 Mg Capsule, 1 CAP PO Q6H PRN for PAIN AND OR ELEVATED TEMP, #30 CAP Prov:PROUSEKISHAN M. PA-C 02/09/17 Hydrocodone/Acetaminophen ([place] 5-325 Tablet) 1 Each Tablet, 1 TAB PO Q6H PRN for PAIN, #7 TAB Prov:KISHAN MORRIS-C 02/09/17 Cephalexin* (Keflex*) 500 Mg Capsule, 500 MG PO QID for 7 Days, CAP Prov:KISHAN MORRIS-C 02/09/17 Benzocaine (Orabase) 11.9 Gm Paste..g., 1 APPLIC MM DAILY for 14 Days, EA Prov:DENNY MOMIN-C 12/11/16 Sodium Chloride (Saline Nasal Mist) 126 Ml Mist, 2 SPRAY NASAL Q2H PRN for NASAL CONGESTION, #1 BOTTLE Prov:BRENT TURK NP 07/05/16 Omeprazole* (Omeprazole*) 20 Mg Capsule.dr, 20 MG PO QAM for 14 Days Prov:BRENT TURK NP 07/05/16 Hydrocodone Bit-Acetaminophen* ([place]*) 5-325 Mg Tab, 1 TAB PO Q4H PRN for PAIN LEVEL 6-10 for 30 Days, TAB Prov:DANIELLE ROMO MD 05/27/15 Docusate Sodium* (Colace*) 100 Mg Capsule, 100 MG PO BID for 30 Days, CAP Prov:DANIELLE ROMO MD 05/27/15 Follow-up Plan 1. Please follow-up with your internal medicine doctor in order to fully evaluate your hemoglobin levels and other reasons for anemia. Your last value at [facility] was 8.7 for your hemoglobin. Please also monitor your liver function values as they were mildly elevated at discharge [facility], your AST was 32 and your ALT was 86. Please also bring up to your internal medicine doctor that a CT scan showed a questionable 3 cm hypodense lesion in the liver however follow-up MRI of the abdomen did not show any lesions in the liver and to keep an eye on it. 2. Please follow-up with your RN TELEMETRY to continue to monitor several small fibroids in your uterus as well as you are 1.3 cm hemorrhagic cyst on the left ovary. 3 please follow-up with Dr. Suárez within 1 week, general surgery 4. If you are not able to follow-up with a primary care provider within 1 week please go to an urgent care and get the following lab values drawn to ensure stability -Hemoglobin and hematocrit, current hemoglobin is 8.7 -Liver function test, current AST is 32 and ALT is 86 Primary Care Provider Care Physician No Primary Time spent on discharge: > 30 minutes Pending Labs Laboratory Tests Test 01/22/19 04:36 01/22/19 12:54 White Blood Count 8.8 10^3/ul (4.8-10.8) Red Blood Count 2.79 10^6/ul (4.20-5.40) Hemoglobin 8.2 g/dl (12.0-16.0) 8.7 g/dl (12.0-16.0) Hematocrit 26.5 % (37.0-47.0) 27.5 % (37.0-47.0) Mean Corpuscular Volume 95.0 fl (82.0-101.0) Mean Corpuscular Hemoglobin 29.4 pg (29.0-33.0) Mean Corpuscular 30.9 g/dl (32.0-37.0) Hemoglobin Concent Red Cell Distribution Width 14.3 % (11.5-14.5) Platelet Count 173 10^3/UL (140-415) Mean Platelet Volume 11.4 fl (7.4-10.4) Immature Granulocytes % 0.600 % (0.001-0.429) Neutrophils % 77.9 % (39.0-77.0) Lymphocytes % 14.4 % (15.0-51.0) Monocytes % 6.8 % (0.0-11.0) Eosinophils % 0.1 % (0.0-7.0) Basophils % 0.2 % (0.0-2.0) Nucleated Red Blood Cells % 0.0 /100WBC (0.0-0.0) Immature Granulocytes # 0.050 10^3/ul (0.0-0.031) Neutrophils # 6.8 10^3/ul (1.6-7.5) Lymphocytes # 1.3 10^3/ul (0.8-2.9) Monocytes # 0.6 10^3/ul (0.3-0.9) Eosinophils # 0.0 10^3/ul (0.0-0.5) Basophils # 0.0 10^3/ul (0.0-0.1) Nucleated Red Blood Cells # 0.0 10^3/ul (0.0-0.0) Sodium Level 139 mmol/L (135-144) Potassium Level 3.5 mmol/L (3.5-5.1) Chloride Level 110 mmol/L (97-110) Carbon Dioxide Level 24 mmol/L (21-31) Anion Gap 5 (5-13) Blood Urea Nitrogen 10 mg/dl (7-20) Creatinine 0.59 mg/dl (0.44-1.00) Est Glomerular Filtrat > 60 mL/min (>60) Rate mL/min Glucose Level 123 mg/dl (70-220) Calcium Level 8.1 mg/dl (8.4-10.2) Phosphorus Level 2.7 mg/dl (2.5-4.9) Magnesium Level 2.1 mg/dl (1.7-2.5) Total Bilirubin 0.4 mg/dl (0.2-1.3) Direct Bilirubin 0.00 mg/dl (0.00-0.20) Indirect Bilirubin 0.4 mg/dl (0-1.1) Aspartate Amino 32 IU/L (15-46) Transf (AST/SGOT) Alanine 86 IU/L (13-69) Aminotransferase (ALT/SGPT) Alkaline Phosphatase 100 IU/L (42-121) Total Protein 6.3 g/dl (6.1-8.1) Albumin 3.2 g/dl (3.3-4.9) ARAVIND SCHAEFER Jan 22, 2019 13:42
[2019-01-22] MEDS ORDERED: NEOMYC/POLYMYX/BACIT 30 GM OINT TOP ONE (14:00)
[2019-01-22 14:22] VITALS: BP 100/50; PULSE 65; RESP 14
== END 2019-01-22 16:22 | disposition home or self-care (01) | DRG 419 ==
LOC: E/R 13:29 → MS1 18:28
PROVIDERS: ADMIT Internal Medicine; ATTEND Internal Medicine
PROC: 0FT44ZZ Resection of Gallbladder, Percutaneous Endoscopic Approach (ICD-10-PCS; principal; 2019-01-20 15:00)
DX: K81.0 Acute cholecystitis (principal); D25.9 Leiomyoma of uterus, unspecified; D64.9 Anemia, unspecified; D72.829 Elevated white blood cell count, unspecified
CPT/HCPCS: 36415; 72196; 74177; 74181; 76705; 76856; 78226; 80048; 80053; 80076; 81001; 81003; 81025; 83690; 83735; 84100; 85014; 85018; 85025; 88304; 96374; 96375; 96376; 97116; 97161; 97167; 97530; A9537; J0690; J1100; J1170; J1650; J1885; J2060; J2250; J2270; J2405; J2543; J2710; J3010; J3480; J7030; J7040; J7042; Q9967